=== PATIENT | male | born 1960 | race Caucasian/White ===

== ENCOUNTER 2019-05-28 08:51 | Day surgery (SDC) | payer MEDICAID ==
[~2019-05-28] VITALS: Ht 182.9 cm; Wt 127.0 kg
[~2019-05-28 08:51] MED LIST: ATEN100T2 PO; CARI350T PO; DILT120C67 PO; HYDR-5122 PO; HYDR25TA32 PO
[2019-05-28] MEDS ORDERED: fentaNYL 0.05 MG/ML VIAL ONE (10:59)
[2019-05-28] MEDS ORDERED: LIDOCAINE 2% 100 MG/5 ML UJET TP ONE (10:59)
[2019-05-28] MEDS ORDERED: fentaNYL 0.05 MG/ML VIAL IVP ONE (11:55)
== END 2019-05-28 11:58 | disposition home or self-care (01) ==
LOC: MOR 08:51 → MMU 09:03 → MOR 11:58
PROVIDERS: ATTEND Internal Medicine Gastroenterology
DX: Z12.11 Encounter for screening for malignant neoplasm of colon (principal); K57.30 Diverticulosis of large intestine without perforation or abscess without bleeding; I10 Essential (primary) hypertension; E66.9 Obesity, unspecified; Z86.19 Personal history of other infectious and parasitic diseases; Z68.34 Body mass index [BMI] 34.0-34.9, adult
CPT/HCPCS: 45378; J3010

== ENCOUNTER 2021-01-25 13:48 | Inpatient (IN) | payer MEDICAID, SELFPAY ==
[~2021-01-25] VITALS: Ht 182.9 cm; Wt 138.3 kg
[2021-01-25 13:53] VITALS: BP 134/74
--- NOTE | 2021-01-25 14:21 | NUR ---
61/M C/O CHEST PAIN, HEADACHES AND BILATERAL LEG SWELLING X5 DAYS. PATIENT STATES BEGAN FEELING SOB TODAY. STATES CURRENTLY SEEING MAMMAL CONTROL AGENT FOR UNCONTROLLED HTN. PT STATED HE FELL AND HIT HIS HEAD ON FRIDAY, BUT DENIES LOC. PT STATED AFTER HITTING HIS HEAD HE HAS STARTED TO EXPERIENCE DIZZINESS, LIGHTHEADNESS, PHOTOPHOBIA, AND DOUBLE VISION. UPON ASSESSMENT S1/S2 HEARD. DIMINISHED BREATH SOUNDS HEARD IN BILATERAL LOWER LOBES. MEDHX: HTN, HEP C ALLERGIES: DENIES Addendum: 01/25/21 at 1909 by [email or web address] SEE LIST FOR ALLERGIES
[2021-01-25] MEDS ORDERED: ASPIRIN 325 MG TAB PO ONE (14:55)
--- NOTE | 2021-01-25 14:56 | NUR ---
DR. ROY BEDSIDE EVALUATING PT
[2021-01-25] MEDS ORDERED: MORPHINE SULFATE 4 MG/ML SYR IVP ONE (15:00)
[2021-01-25 15:56] LABS: BASOPHILS # (AUTO) 0.1 K/uL (0.00-0.22); BASOPHILS % (AUTO) 0.9 % (0.0-2.0); EOSINOPHILS # (AUTO) 0.2 K/uL (0-0.4); EOSINOPHILS % (AUTO) 2.7 % (0.0-4.0); HEMATOCRIT 42.9 % (36-52); HEMOGLOBIN 14.7 g/dL (12.0-18.0); LYMPHOCYTES # (AUTO) 2.3 K/uL (2.0-11.5); LYMPHOCYTES % (AUTO) 31.3 % (20.5-51.1); MEAN CORPUSCULAR HEMOGLOBIN 33 pg (27-31); MEAN CORPUSCULAR HGB CONC 34 g/dL (33-37); MEAN CORPUSCULAR VOLUME 95.3 fL (80-94); MONOCYTES # (AUTO) 0.8 K/uL (0.8-1.0); MONOCYTES % (AUTO) 10.5 % (1.7-9.3); NEUTROPHILS % (AUTO) 54.6 % (42.2-75.2); PLATELET COUNT (AUTO) 160 K/uL (140-450); RED BLOOD CELL COUNT(AUTO) 4.51 MIL/uL (4.20-6.10); RED CELL DISTRIBUTION WIDTH 13.8 % (11.6-13.7); WHITE BLOOD COUNT (AUTO) 7.4 K/uL (4.8-10.8)
[2021-01-25 16:15] LABS: ANION GAP 12.5 (8-16); CARBON DIOXIDE 29.3 mmol/L (21-32); CREATININE 1.1 mg/dL (0.6-1.3); POTASSIUM 4.8 mmol/L (3.5-5.1); TOTAL BILIRUBIN 0.5 mg/dL (0.0-1.0)
--- NOTE | 2021-01-25 16:16 | NUR ---
PT CURRENTLY RESTING BEDSIDE WITH EYES OPEN. PT ON AIX ARCHITECT AND VITAL SIGNS STABLE. BED IN LOWEST POSITION WITH SIDERAIL X1 UP. WILL CONTINUE TO MONITOR
--- NOTE | 2021-01-25 16:16 | NUR ---
CONSENT FOR CT HAS BEEN SIGNED AND OBTAINED BEDSIDE
--- NOTE | 2021-01-25 16:37 | NUR ---
pt taken to ct via nettie
--- NOTE | 2021-01-25 18:28 | NUR ---
SRINI ROBERTS SWAB COLLECTED AND HANDED TO OCCUPATIONAL HEALTH AND SAFETY ADVISER
[2021-01-25] MEDS ORDERED: METO50TE2 PO (18:39)
[2021-01-25] MEDS ORDERED: ROSU20TA1 PO (18:39)
[2021-01-25] MEDS ORDERED: BENA20TA PO (18:39)
[2021-01-25] MEDS ORDERED: SPIR50TA PO (18:39)
[2021-01-25] MEDS ORDERED: NAPR-1719 PO (18:39)
[2021-01-25] MEDS ORDERED: AMLO10TA89 PO (18:39)
--- NOTE | 2021-01-25 19:20 | NUR ---
PT IS AWAKE AND ALERT. PT DENIES TROUBLE BREATHING AND CHEST PAIN. ALL NEEDS MET AT THIS TIME.
[2021-01-25] MEDS ORDERED: DOCUSATE SODIUM 100 MG GELCAP PO PRN (20:20)
[2021-01-25] MEDS ORDERED: ZOLPIDEM 5 MG TAB PO PRN (20:20)
[2021-01-25] MEDS: NACL 0.9% 1,000 ML IV SCH (20:20)
[2021-01-25] MEDS ORDERED: guaiFENesin DM 200/20 MG-10 ML 10 ML UDC PO PRN (20:20)
[2021-01-25] MEDS ORDERED: ONDANSETRON 4 MG/2 ML VIAL IM/IVP PRN (20:20)
[2021-01-25] MEDS ORDERED: POTASSIUM CHLORIDE 10 MEQ TABER PO PRN (20:20)
[2021-01-25] MEDS ORDERED: HYDROcodone/APAP 5/325 MG 1 TAB TAB PO SCH (20:25)
[2021-01-25] MEDS ORDERED: NITROGLYCERIN 0.4 MG TAB SL PRN (20:30)
--- NOTE | 2021-01-25 20:43 | NUR ---
X-Ray at bedside.
[2021-01-25 20:58] LABS: PROTHROMBIN TIME 9.6 secs (10.8-13.4)
[2021-01-25] MEDS ORDERED: NON-FORMULARY ITEM (Rosuvastatin Calcium* (Crestor*) 20 MG) PO SCH (21:00)
[2021-01-25 21:09] LABS: CHOL/HDL RATIO 4.4 (1-4.5); MAGNESIUM 2.2 mg/dL (1.8-2.4); PHOSPHORUS 3.7 mg/dL (2.5-4.9); THYROID STIMULATING HORMONE 1.62 uIU/mL (0.34-3.74)
[2021-01-25 21:30] LABS: FREE T4 (FREE THYROXINE) 0.79 ng/dL (0.76-1.46)
[2021-01-25] MEDS: METOPROLOL 50 MG TAB PO SCH (21:39)
[2021-01-25] MEDS: carisoprodoL 350 MG TAB PO SCH (21:39)
--- NOTE | 2021-01-25 23:28 | NUR ---
Alyssa randle in [facility] - 01/25/21 at 2329 by [facility] REPORTED BLOOD GLUCOSE [phone], DR ORTIZ MADE AWARE.
--- NOTE | 2021-01-26 06:27 | NUR ---
PT SLEPT FROM 11:30 PM AND IS STILL ASLEEP. PT STILL IN STABLE CONDITION. EQUAL RISE AND FALL OF CHEST WALL. ALL NEEDS MET. SIDE RAILS X1, BED LOCKED IN LOWEST POSITION.
[2021-01-26 06:47] LABS: BASOPHILS # (AUTO) 0.1 K/uL (0.00-0.22); BASOPHILS % (AUTO) 0.8 % (0.0-2.0); EOSINOPHILS # (AUTO) 0.3 K/uL (0-0.4); EOSINOPHILS % (AUTO) 3.3 % (0.0-4.0); HEMATOCRIT 44.2 % (36-52); HEMOGLOBIN 14.6 g/dL (12.0-18.0); LYMPHOCYTES # (AUTO) 2.2 K/uL (2.0-11.5); LYMPHOCYTES % (AUTO) 25.8 % (20.5-51.1); MEAN CORPUSCULAR HEMOGLOBIN 32 pg (27-31); MEAN CORPUSCULAR HGB CONC 33 g/dL (33-37); MEAN CORPUSCULAR VOLUME 97.3 fL (80-94); MONOCYTES # (AUTO) 0.9 K/uL (0.8-1.0); MONOCYTES % (AUTO) 10.5 % (1.7-9.3); NEUTROPHILS # (AUTO) 5.1 K/uL (1.8-7.7); NEUTROPHILS % (AUTO) 59.6 % (42.2-75.2); PLATELET COUNT (AUTO) 158 K/uL (140-450); RED BLOOD CELL COUNT(AUTO) 4.55 MIL/uL (4.20-6.10); RED CELL DISTRIBUTION WIDTH 13.9 % (11.6-13.7); WHITE BLOOD COUNT (AUTO) 8.6 K/uL (4.8-10.8)
--- NOTE | 2021-01-26 07:28 | NUR ---
URINE COLLECTION CUP GIVEN TO PT, STATED HE WILL GIVE URINE WHEN HE GETS UP.
--- NOTE | 2021-01-26 07:30 | NUR ---
REPORT GIVEN TO AVILA PERALTA. TRANSFER OF CARE AT THIS TIME.
--- NOTE | 2021-01-26 08:08 | NUR ---
REPORT RECEIVED FROM ED NURSE.
--- NOTE | 2021-01-26 08:36 | NUR ---
Patient will be admitted to care of DR. CHRISTIANSON. Admited to TELE. Will go to room 122A. Belongings list completed. Report to AVILA DAVIS.
[2021-01-26] MEDS: ECOTRIN 81 MG TABEC PO SCH (09:25)
[2021-01-26] MEDS: hydroCHLOROthiazide 25 MG TAB PO SCH (09:27)
[2021-01-26] MEDS: carisoprodoL 350 MG TAB PO SCH ×2 (09:28→21:22)
[2021-01-26] MEDS: ATORVASTATIN 80 MG TAB PO SCH (09:28)
[2021-01-26] MEDS: METOPROLOL 50 MG TAB PO SCH ×2 (09:29→21:21)
[2021-01-26] MEDS: SPIRONOLACTONE 50 MG TAB PO SCH (09:30)
[2021-01-26] MEDS: PANTOPRAZOLE 40 MG TABEC PO SCH (09:31)
[2021-01-26] MEDS: BENAZEPRIL 20 MG TAB PO SCH (09:32)
--- NOTE | 2021-01-26 09:38 | NUR ---
MEDICATIONS GIVEN PER MD ORDER. PT EDUCATED . PT VERBALIZED UNDERSTANDING. NO S/SX OF DISTRESS AT THIS TIME. PT REORIENTED TO ROOM ALL SAFETY MEASURES ARE IN PLACE. CALL LIGHT WITHIN REACH
--- NOTE | 2021-01-26 11:20 | NUR ---
PT AMBULATED TO RESTROOM. PT HAS LABORED BREATHING PT PUT BACK O2/ 02% 96%. PT EDUCATED TO USE URINAL/ PT VERBALIZED UNDERSTANDING. NO S/SX OF DISTRESS AT THIS TIME. CALL LIGHT WITHIN REACH
[2021-01-26 11:52] LABS: ANION GAP 15.8 (8-16); CARBON DIOXIDE 26.6 mmol/L (21-32); POTASSIUM 4.4 mmol/L (3.5-5.1)
[2021-01-26 12:00] VITALS: BP 135/62
--- NOTE | 2021-01-26 12:53 | NUR ---
IV FLUIDS GIVEN PER MD ORDER. PT EDUCATED, PT VERBALIZED UNDERSTANDING. PT DENIES PAIN AT THIS TIME. NO S/S OF DISTRESS. ALL SAFETY MEASURES IN PLACE.
[2021-01-26] MEDS: NACL 0.9% 1,000 ML IV SCH ×2 (13:57→21:34)
--- NOTE | 2021-01-26 14:00 | NUR ---
PATIENT ROUNDED ON PT RESTING IN BED, NO S/SX OF DISTRESS AT THIS TIME. ALL SAFETY MEASURES ARE IN PLACE.
[2021-01-26 16:00] VITALS: BP 135/67
--- NOTE | 2021-01-26 16:23 | NUR ---
PT ROUNDED ON PT RESTING IN BED, NO S/SX OF DISTRESS AT THIS TIME. ALL SAFETY MEASURES ARE IN PLACE. CALL LIGHT WITHIN REACH
--- NOTE | 2021-01-26 16:51 | NUR ---
PATIENT HAS BEEN SCREENED AND CATEGORIZED LOW NUTRITION RISK. PATIENT WILL BE SEEN WITHIN 7 DAYS OF ADMISSION. 02/01/21 FNS REFERRAL NOT APPROPRIATE FOR [facility] [address]
[2021-01-26] MEDS: KETOROLAC 30 MG/ML VIAL IVP PRN (18:33)
--- NOTE | 2021-01-26 18:40 | NUR ---
MEDICATED PT FOR PAIN PER MD ORDER. EDUCATED PT ON MEDICATION. PT VERBALIZED UNDERSTANDING. ALL SAFETY MEASURES IN PLACE, CALL LIGHT WITHIN REACH.
--- NOTE | 2021-01-26 19:29 | NUR ---
PT ENDORSED TO NIGHT NURSE. PT IN STABLE CONDITION
--- NOTE | 2021-01-26 19:35 | NUR ---
RECEIVED REPORT FROM DAYSNEFT NURSE FOR CONTINUITY OF CARE.
[2021-01-26 20:00] VITALS: BP 156/77
--- NOTE | 2021-01-26 21:37 | NUR ---
ALL SCHEDULED MEDS GIVEN. PT TOLERATED WELL.
[2021-01-27] VITALS: BP 109/50
--- NOTE | 2021-01-27 01:21 | NUR ---
PATIENT ASLEEP, 4L NC, NO SIGNS OF DISTRESS. SAFETY MEASURES IMPLEMENTED. CALL LIGHT WITHIN REACH.
[2021-01-27 04:00] VITALS: BP 126/59
[2021-01-27] MEDS: KETOROLAC 30 MG/ML VIAL IVP PRN ×2 (05:47→12:28)
--- NOTE | 2021-01-27 05:47 | NUR ---
GAVE PRN KETOROLAC FOR 7/10 HEADACHE. PRN TOLERATED WELL.
[2021-01-27 07:07] LABS: BASOPHILS # (AUTO) 0.1 K/uL (0.00-0.22); BASOPHILS % (AUTO) 0.7 % (0.0-2.0); EOSINOPHILS # (AUTO) 0.2 K/uL (0-0.4); HEMATOCRIT 40.6 % (36-52); LYMPHOCYTES % (AUTO) 25.7 % (20.5-51.1); MEAN CORPUSCULAR HEMOGLOBIN 33 pg (27-31); MEAN CORPUSCULAR HGB CONC 34 g/dL (33-37); MEAN CORPUSCULAR VOLUME 95.3 fL (80-94); MONOCYTES # (AUTO) 0.7 K/uL (0.8-1.0); MONOCYTES % (AUTO) 9.3 % (1.7-9.3); NEUTROPHILS # (AUTO) 4.9 K/uL (1.8-7.7); NEUTROPHILS % (AUTO) 62.3 % (42.2-75.2); PLATELET COUNT (AUTO) 137 K/uL (140-450); RED BLOOD CELL COUNT(AUTO) 4.26 MIL/uL (4.20-6.10); RED CELL DISTRIBUTION WIDTH 13.3 % (11.6-13.7); WHITE BLOOD COUNT (AUTO) 7.8 K/uL (4.8-10.8)
--- NOTE | 2021-01-27 07:23 | NUR ---
ENDORSE PT TO DAYSHIFT NURSE FOR CONTINUITY OF CARE.
--- NOTE | 2021-01-27 07:26 | NUR ---
RECEIVED REPORT FROM NIGHT NURSE PATIENT IS AAOX4, ON 4 LPM OXYGEN VIA NC SATURATING AT 96%, LAST BOWEL MOVEMENT 01/25/21, IV INTACT ON LEFT AC RUNNING NS AT 60 OUTPUT 700 ML. AMBULATORY, COMPLAINED OF HEADACHE AND PAIN MEDS GIVEN AT 0547. SKIN INTACT, WITH DVT PROPHYLAXIS. SAFETY MEASURES IN PLACE AND CALL LIGHT WITHIN REACH. WILL CONTINUE TO MONITOR.
[2021-01-27 07:30] LABS: ANION GAP 11.9 (8-16); CARBON DIOXIDE 29.6 mmol/L (21-32); POTASSIUM 4.5 mmol/L (3.5-5.1)
[2021-01-27 08:00] VITALS: BP 142/77
[2021-01-27] MEDS: ATORVASTATIN 80 MG TAB PO SCH (08:29)
[2021-01-27] MEDS: PANTOPRAZOLE 40 MG TABEC PO SCH (08:30)
[2021-01-27] MEDS: carisoprodoL 350 MG TAB PO SCH ×2 (08:30→20:42)
[2021-01-27] MEDS: ECOTRIN 81 MG TABEC PO SCH (08:30)
[2021-01-27] MEDS: BENAZEPRIL 20 MG TAB PO SCH (08:31)
[2021-01-27] MEDS: hydroCHLOROthiazide 25 MG TAB PO SCH (08:31)
[2021-01-27] MEDS: SPIRONOLACTONE 50 MG TAB PO SCH (08:31)
[2021-01-27] MEDS: METOPROLOL 50 MG TAB PO SCH ×2 (08:32→20:42)
--- NOTE | 2021-01-27 08:39 | NUR ---
ADMINISTERED SCHEDULED MEDICATION. VITAL SIGNS CHECK PRIOR TO MEDICATION BP 142/77 ND 63 PATIENT TOLERATED WELL AND NO DISTRESS NOTED. WILL CONTINUE TO MONITOR.
--- NOTE | 2021-01-27 10:00 | NUR ---
PATIENT SEEN BY DR BLEDSOE AND RECOMMENDED OP TIN ASSORTER FOR STRESS TEST.
[2021-01-27 10:06] LABS: T4 (THYROXINE) 6.5 ug/dL (4.5-12.0)
--- NOTE | 2021-01-27 10:58 | NUR ---
MADE ROUNDS PT IS SLEEPING STILL WITH 4 LPM OXYGEN VIA NASAL CANULA. WILL CONTINUE TO MONITOR.
[2021-01-27 12:00] VITALS: BP 141/84
--- NOTE | 2021-01-27 12:28 | NUR ---
PATIENT COMPLAINS OF HEADACHE AND BACK PAIN 01/26 CHECK VITAL SIGNS PRIOR TO MEDICATION BP 141/84 MD 71 PT IS SITTING. WILL CONTINUE TO MONITOR.
--- NOTE | 2021-01-27 13:11 | NUR ---
ECHO CARDIO ONGOING AT THIS TIME.
[2021-01-27] MEDS: ACETAMINOPHEN 325 MG TAB PO PRN ×2 (15:50→23:18)
--- NOTE | 2021-01-27 15:52 | NUR ---
PATIENT COMPLAINS OF HEADACHE 8/10 TYLENOL 650 MG GIVEN AND WILL RECHECK AFTER AN HOUR AND MONITOR FOR ANY ADVERSE EFFECT.
[2021-01-27 16:00] VITALS: BP 124/67
--- NOTE | 2021-01-27 16:50 | NUR ---
PATIENT FEELS BETTER AND NO ALLERGIC REACTION ON TYLENOL. PT IS RESTING.
--- NOTE | 2021-01-27 19:10 | NUR ---
ENDORSED TO NIGHT NURSE FOR CONTINUITY OF CARE. PT IS STABLE.
--- NOTE | 2021-01-27 19:38 | NUR ---
RECEIVED REPORT FROM DAYSRIFT NURSE FOR CONTINUITY OF CARE.
[2021-01-27 20:00] VITALS: BP 151/68
[2021-01-27] MEDS: NACL 0.9% 1,000 ML IV SCH (20:49)
--- NOTE | 2021-01-27 20:49 | NUR ---
ALL SCHEDULED MEDS GIVEN. PT TOLERATED WELL.
[2021-01-28] VITALS: BP 140/48
--- NOTE | 2021-01-28 03:51 | NUR ---
PATIENT ASLEEP. NO SIGNS OF DISTRESS, SAFETY MEASURES IMPLEMENTED.
[2021-01-28 04:00] VITALS: BP 140/48
[2021-01-28] MEDS: KETOROLAC 30 MG/ML VIAL IVP PRN (05:10)
[2021-01-28 06:37] LABS: BASOPHILS % (AUTO) 0.4 % (0.0-2.0); EOSINOPHILS # (AUTO) 0.2 K/uL (0-0.4); HEMOGLOBIN 14.3 g/dL (12.0-18.0); LYMPHOCYTES % (AUTO) 25.2 % (20.5-51.1); MEAN CORPUSCULAR HEMOGLOBIN 33 pg (27-31); MEAN CORPUSCULAR HGB CONC 34 g/dL (33-37); MEAN CORPUSCULAR VOLUME 95.5 fL (80-94); MONOCYTES # (AUTO) 0.8 K/uL (0.8-1.0); MONOCYTES % (AUTO) 10.2 % (1.7-9.3); NEUTROPHILS # (AUTO) 5.1 K/uL (1.8-7.7); NEUTROPHILS % (AUTO) 62.2 % (42.2-75.2); PLATELET COUNT (AUTO) 136 K/uL (140-450); RED BLOOD CELL COUNT(AUTO) 4.39 MIL/uL (4.20-6.10); RED CELL DISTRIBUTION WIDTH 13.5 % (11.6-13.7); WHITE BLOOD COUNT (AUTO) 8.1 K/uL (4.8-10.8)
[2021-01-28 07:10] LABS: ANION GAP 10.8 (8-16); CARBON DIOXIDE 29.4 mmol/L (21-32); POTASSIUM 4.2 mmol/L (3.5-5.1)
--- NOTE | 2021-01-28 07:14 | NUR ---
ENDORSE PATIENT TO DAYSHIFT NURSE FOR CONTINUITY OF CARE.
--- NOTE | 2021-01-28 07:18 | NUR ---
RECEIVED REPORT FROM NIGHT NURSE PATIENT IS AAOX4 PT IS RESTING ON SINUS RHYTHM, AMBULATORY, SKIN INTACT, IV INTACT ON LEFT AC RUNNING NS AT 60 MLS/HR. ON 4 LPM NC. SAFETY MEASURES IN PLACE AND CALL LIGHT WITHIN REACH. WILL CONTINUE TO MONITOR.
[2021-01-28 08:00] VITALS: BP 143/80
[2021-01-28] MEDS: ECOTRIN 81 MG TABEC PO SCH (09:06)
[2021-01-28] MEDS: PANTOPRAZOLE 40 MG TABEC PO SCH (09:07)
[2021-01-28] MEDS: METOPROLOL 50 MG TAB PO SCH (09:08)
[2021-01-28] MEDS: hydroCHLOROthiazide 25 MG TAB PO SCH (09:09)
[2021-01-28] MEDS: SPIRONOLACTONE 50 MG TAB PO SCH (09:10)
[2021-01-28] MEDS: ATORVASTATIN 80 MG TAB PO SCH (09:10)
[2021-01-28] MEDS: BENAZEPRIL 20 MG TAB PO SCH (09:11)
[2021-01-28] MEDS: carisoprodoL 350 MG TAB PO SCH (09:11)
[2021-01-28] MEDS: ACETAMINOPHEN 325 MG TAB PO PRN (09:12)
--- NOTE | 2021-01-28 09:19 | NUR ---
ADMINISTERED SCHEDULED MEDICATION CHECK VITAL SIGNS BP 143/80 MT 68 PATIENT COMPLAINS OF HEADACHE 7/10 PAIN MEDICATION GIVEN. WILL CONTINUE TO MONITOR.
--- NOTE | 2021-01-28 11:00 | NUR ---
PATIENT IS RESTING NO DISTRESS NOTED AND NO COMPLAINS OF CHEST PAIN.
[2021-01-28 12:00] VITALS: BP 137/85
--- NOTE | 2021-01-28 12:00 | NUR ---
PATIENT IS RESTING CHECK VITAL SIGNS NO PAIN NOTED AND PT STABLE.
[2021-01-28] MEDS ORDERED: ASPI-1856 PO (12:40)
[2021-01-28] MEDS ORDERED: METO50TA99 PO (12:40)
[2021-01-28] MEDS ORDERED: PANT40EC56 PO (12:40)
--- NOTE | 2021-01-28 15:35 | NUR ---
DISCHARGED INSTRUCTION GIVEN TO PATIENT AT THE BEDSIDE ENCOURAGED TO CONTINUE MEDICATION AND INSTRUCTED TO FOLLOW UP WITH MENTAL HEALTH CONSULTANT FOR OUTPATIENT STRESS TEST AND FOLLOW UP WITH PCP AFTER DISCHARGE. INSTRUCTED TO SEEK MEDICAL HELP IN CASE OF EMERGENCIES. REMOVED ID BANDS AND IV INTACT AND COMPLETE NO BLEEDING.REMOVED TELEMONITOR RETURNED TO LEGISLATIVE ANALYST. HELP PATIENT CHANGE CLOTHES AND ESCORTED TO FRONT LOBBY VIA WHEELCHAIR. PT IS GOING HOME ACCOMPANIED BY . PT IS STABLE.
== END 2021-01-28 13:35 | disposition home or self-care (01) | DRG 203 ==
LOC: MED 13:49 → MTU 18:29
PROVIDERS: ADMIT Family Medicine; ATTEND Family Medicine
DX: M94.0 Chondrocostal junction syndrome [Tietze] (principal); B19.20 Unspecified viral hepatitis C without hepatic coma; R07.89 Other chest pain; I25.10 Atherosclerotic heart disease of native coronary artery without angina pectoris; E66.01 Morbid (severe) obesity due to excess calories; E78.5 Hyperlipidemia, unspecified; R74.01 Elevation of levels of liver transaminase levels; G89.29 Other chronic pain; Z20.822 Contact with and (suspected) exposure to COVID-19; I10 Essential (primary) hypertension; Z96.651 Presence of right artificial knee joint; J43.9 Emphysema, unspecified; M19.90 Unspecified osteoarthritis, unspecified site; Z87.891 Personal history of nicotine dependence; Z86.718 Personal history of other venous thrombosis and embolism; Z68.41 Body mass index [BMI] 40.0-44.9, adult; Z88.6 Allergy status to analgesic agent; Z88.8 Allergy status to other drugs, medicaments and biological substances; Z79.899 Other long term (current) drug therapy
CPT/HCPCS: 36415; 71045; 71275; 80048; 80053; 82150; 83036; 83690; 83735; 83880; 84100; 84436; 84439; 84443; 84479; 84484; 85025; 85610; 85730; 87081; 93005; 93925; 93970; 96374; 99285; J1644; J1885; J2270; Q0092; Q9967

== ENCOUNTER 2022-06-09 09:36 | Inpatient (IN) | payer MEDICAID ==
[~2022-06-09] VITALS: Ht 182.9 cm; Wt 127.1 kg
[~2022-06-09 09:36] MED LIST changes: +ASPI-1856 PO; -ATEN100T2 PO; +BENA20TA PO; -DILT120C67 PO; -HYDR-5122 PO; +METO50TA99 PO; +PANT40EC56 PO; +ROSU20TA1 PO; +SPIR50TA PO
[2022-06-09 09:39] VITALS: BP 140/87
[2022-06-09] MEDS ORDERED: ASPIRIN 325 MG TAB PO ONE (10:10)
--- NOTE | 2022-06-09 10:20 | NUR ---
Covid and Flu swabs labeled and walked to lab.
--- NOTE | 2022-06-09 10:35 | NUR ---
Pt bibs for chest pain that worsened today. Pain is pressure, 6/10, non radiating, constant, worse with activity. Pt placed on monitor, iv started, labs labeled and sent to lab, speech clear, vss, no ss of acute distress, breathing equal and unlabored, rails up x 2.
[2022-06-09 11:04] LABS: BASOPHILS % (AUTO) 0.4 % (0.0-2.0); EOSINOPHILS # (AUTO) 0.1 K/uL (0-0.4); EOSINOPHILS % (AUTO) 0.7 % (0.0-4.0); HEMOGLOBIN 14.6 g/dL (12.0-18.0); LYMPHOCYTES # (AUTO) 1.6 K/uL (2.0-11.5); LYMPHOCYTES % (AUTO) 14.6 % (20.5-51.1); MEAN CORPUSCULAR HEMOGLOBIN 31 pg (27-31); MEAN CORPUSCULAR HGB CONC 34 g/dL (33-37); MONOCYTES # (AUTO) 1.3 K/uL (0.8-1.0); MONOCYTES % (AUTO) 11.7 % (1.7-9.3); NEUTROPHILS # (AUTO) 7.9 K/uL (1.8-7.7); NEUTROPHILS % (AUTO) 72.6 % (42.2-75.2); PLATELET COUNT (AUTO) 192 K/uL (140-450); RED BLOOD CELL COUNT(AUTO) 4.67 MIL/uL (4.20-6.10); RED CELL DISTRIBUTION WIDTH 14.1 % (11.6-13.7); WHITE BLOOD COUNT (AUTO) 10.9 K/uL (4.8-10.8)
[2022-06-09 11:22] LABS: ALBUMIN 3.6 g/dL (3.4-5.0); ANION GAP 10.1 (8-16); CARBON DIOXIDE 30.6 mmol/L (21-32); CREATININE 1.2 mg/dL (0.6-1.3); POTASSIUM 3.7 mmol/L (3.5-5.1)
--- NOTE | 2022-06-09 14:05 | NUR ---
OKAY TO EAT PER ERMD GIVEN APPLE SAUCE, JUICE, CRACKERS
[2022-06-09] MEDS ORDERED: NACL 0.9% 1,000 ML IV SCH ×2 (18:00→18:05)
[2022-06-09] MEDS ORDERED: ONDANSETRON 4 MG/2 ML VIAL IVP PRN (18:00)
[2022-06-09] MEDS ORDERED: LORazepam 2 MG/ML VIAL IVP PRN (18:00)
[2022-06-09] MEDS ORDERED: ZOLPIDEM 5 MG TAB PO PRN (18:05)
[2022-06-09] MEDS ORDERED: NITROGLYCERIN 0.4 MG TAB SL PRN (18:05)
[2022-06-09] MEDS: LORazepam 2 MG/ML VIAL IVP PRN (18:53)
--- NOTE | 2022-06-09 19:00 | NUR ---
Note razia in EDM - 06/09/22 at 1929 by [facility] Multiple attempts at IV made by myself and STUDY COORDINATOR as requested by , for superior access compared with 22g in hand. None successful yet.
--- NOTE | 2022-06-09 19:59 | NUR ---
MRSA swab collected and sent to lab
--- NOTE | 2022-06-09 20:40 | NUR ---
Report given to Kb GRAMAJO for transfer of care
[2022-06-09 21:00] VITALS: BP 164/77
[2022-06-09] MEDS ORDERED: METOPROLOL 25 MG TAB PO SCH (21:00)
--- NOTE | 2022-06-09 21:00 | NUR ---
PT IS WAS [id number] FROM ER A NEWLY ADMISSION. PT IS AWAKE AND ALERT ORIENTED X 4. HE IS ON NASAL CANULA 2 L. NO RESPIRATORY DISTRESS NOTED.
[2022-06-09] MEDS: METOPROLOL 50 MG TAB PO SCH (21:41)
--- NOTE | 2022-06-09 22:00 | NUR ---
PT IS HUNGRY ASKING FOR A SANDWICH. FOOD WAS PROVIDED. HE ALSO MENTIONED THAT HE NEEDS HE CPAP TO SLEEP WITH
--- NOTE | 2022-06-09 22:30 | NUR ---
PLACED PT ON CPAP AT THIS TIME. PT USES CPAP AT HOME. 7/32%
--- NOTE | 2022-06-09 23:00 | NUR ---
RT AT THE BEDSIDE PREPARING FOR CPAP
--- NOTE | 2022-06-10 00:30 | NUR ---
PT NO LONGER WANTS TO USE CPAP. PLACED BACK ON 3L.
--- NOTE | 2022-06-10 01:17 | NUR ---
PT COMPLAINING ABOUT CHEST PAIN. NITRO WAS GIVEN
[2022-06-10] MEDS: LORazepam 2 MG/ML VIAL IVP PRN (02:15)
[2022-06-10] MEDS ORDERED: MORPHINE SULFATE 2 MG/ML SYR IVP PRN (02:35)
[2022-06-10 05:54] VITALS: BP 128/62
[2022-06-10 05:56] LABS: BASOPHILS # (AUTO) 0.1 K/uL (0.00-0.22); BASOPHILS % (AUTO) 0.7 % (0.0-2.0); EOSINOPHILS # (AUTO) 0.1 K/uL (0-0.4); EOSINOPHILS % (AUTO) 0.6 % (0.0-4.0); HEMATOCRIT 42.2 % (36-52); HEMOGLOBIN 14.1 g/dL (12.0-18.0); LYMPHOCYTES # (AUTO) 1.4 K/uL (2.0-11.5); LYMPHOCYTES % (AUTO) 11.8 % (20.5-51.1); MEAN CORPUSCULAR HEMOGLOBIN 31 pg (27-31); MEAN CORPUSCULAR HGB CONC 34 g/dL (33-37); MEAN CORPUSCULAR VOLUME 92.1 fL (80-94); MONOCYTES # (AUTO) 1.3 K/uL (0.8-1.0); MONOCYTES % (AUTO) 11.3 % (1.7-9.3); NEUTROPHILS # (AUTO) 8.9 K/uL (1.8-7.7); NEUTROPHILS % (AUTO) 75.6 % (42.2-75.2); PLATELET COUNT (AUTO) 192 K/uL (140-450); RED BLOOD CELL COUNT(AUTO) 4.58 MIL/uL (4.20-6.10); RED CELL DISTRIBUTION WIDTH 14.2 % (11.6-13.7); WHITE BLOOD COUNT (AUTO) 11.8 K/uL (4.8-10.8)
[2022-06-10 06:36] LABS: CARBON DIOXIDE 31.3 mmol/L (21-32); CREATININE 1.2 mg/dL (0.6-1.3); POTASSIUM 4.3 mmol/L (3.5-5.1)
[2022-06-10 06:45] LABS: CHOL/HDL RATIO 2.8 (1-4.5); MAGNESIUM 1.9 mg/dL (1.8-2.4)
[2022-06-10] MEDS ORDERED: POTASSIUM CHLORIDE 10 MEQ TABER PO PRN (07:55)
[2022-06-10] MEDS ORDERED: MAG SULF 2000 MG/WATER PREMIX 50 ML IV PRN (07:55)
[2022-06-10] MEDS ORDERED: ZOLPIDEM 10 MG TAB PO PRN (07:55)
[2022-06-10] MEDS ORDERED: LORazepam 2 MG/ML VIAL IVP PRN (07:55)
[2022-06-10] MEDS ORDERED: DOCUSATE SODIUM 100 MG GELCAP PO PRN (07:55)
[2022-06-10] MEDS ORDERED: ONDANSETRON 4 MG/2 ML VIAL IVP PRN (07:55)
[2022-06-10 08:00] VITALS: BP 138/80
--- NOTE | 2022-06-10 08:00 | NUR ---
RECEIVED PATIENT IN BED, COMPLAINS OF MILD SOB, LUNG SOUNDS SCATTERED RALES HEARD UPON AUSCULTATION,ON O2 @ 3LPM VIA NC, ASSESSMENT DONE AND DOCUMENTED,PLAN OF CARE DISCUSSED, WILL CALL RT FOR BREATHING TREATMENT.
--- NOTE | 2022-06-10 08:10 | NUR ---
AWAKE AND ALERT RESPONSIVE RECEIVED ON SUPPLEMENTAL OXYGEN AT 3 LPM VIA NC SATURATION 91% PATIENT PRESENTING WITH INCREASED WOB AT 28 BPM DEEP CHEST RISE BREATH SOUNDS RALES RIGHT SIDE DECREASED LEFT SIDE PATIENT GOOD CANDIDATE FOR HHN THERAPY PRN AND OR SCHEDULED ROCK DUSTER TO REVIEW WITH PCP
--- NOTE | 2022-06-10 08:23 | NUR ---
ON OR ABOUT THIS TIME REVIEWED WITH DR. JASS MOULTON PATIENTS PMHX: COPD CHF CAD HTN ALBUTEROL MDI USAGE 4 TIMES A DAY HOME O2 AT 2 LPM VORBO: HHN THERAPY ALBUTEROL Q6WA AND Q4 PRN SOB OXYGEN SATURATION GREATER THAN 90%
[2022-06-10] MEDS ORDERED: ATORVASTATIN 80 MG TAB PO SCH (09:00)
[2022-06-10] MEDS ORDERED: ATORVASTATIN 20 MG TAB PO SCH (09:00)
[2022-06-10] MEDS ORDERED: CLOPIDOGREL 75 MG TAB PO SCH (09:00)
--- NOTE | 2022-06-10 09:00 | NUR ---
BREATHING TREATMENT GIVEN BY RT WITH RELIEF, PATIENT STATES FEELING BETTER AT THIS TIME, WILL CONTINUE TO MONITOR.
[2022-06-10] MEDS ORDERED: ALBUTEROL 0.083% 2.5 MG/3 ML NEBU INH PRN (09:10)
--- NOTE | 2022-06-10 09:21 | NUR ---
PATIENT HAS BEEN SCREENED AND CATEGORIZED MODERATE NUTRITION RISK. PATIENT WILL BE SEEN WITHIN 3-5 DAYS OF ADMISSION. / REVIEWED BY KIET RECINOS RD
[2022-06-10] MEDS: METOPROLOL 50 MG TAB PO SCH ×2 (10:13→21:53)
[2022-06-10] MEDS: SPIRONOLACTONE 50 MG TAB PO SCH (10:13)
[2022-06-10] MEDS: BENAZEPRIL 20 MG TAB PO SCH (10:13)
[2022-06-10] MEDS: hydroCHLOROthiazide 25 MG TAB PO SCH (10:14)
[2022-06-10 12:00] VITALS: BP 130/78
[2022-06-10] MEDS ORDERED: methylPREDNISolone SS 125 MG/2 ML VIAL IVP SCH (13:00)
[2022-06-10] MEDS ORDERED: AZITHROMYCIN 500 MG in DEXTROSE 5% 250 ML IV SCH (13:00)
[2022-06-10] MEDS: ALBUTEROL 0.083% 2.5 MG/3 ML NEBU INH SCH ×2 (14:02→19:01)
[2022-06-10] MEDS: ISOSORBIDE MONONITRATE 30 MG TABER PO SCH (14:40)
[2022-06-10 16:00] VITALS: BP 156/60
--- NOTE | 2022-06-10 19:30 | NUR ---
RECEIVED REPORT FROM DAY SHIFT NURSE CONNOR FOR CONTINUITY OF CARE. PATIENT IS A&O X1. IV IS ASHLIE 22G, NO FLUIDS RUNNING (SALINE LOCKED). PATIENT IS SLEEPING, LYING SEMI-FOWLERS IN BED. BED IS IN LOWEST POSITION, WHEELS LOCKED CALL LIGHT IN PLACE. WILL CONTINUE TO OBSERVE PATIENT.
[2022-06-10 20:00] VITALS: BP 144/107
[2022-06-10] MEDS: methylPREDNISolone SS 125 MG/2 ML VIAL IVP SCH (21:51)
--- NOTE | 2022-06-11 04:30 | NUR ---
OBTAINED PATIENT'S 0400 VITALS. PATIENT WAS SLEEPING UPON ENTERING THE ROOM. PATIENT WAS EASILY WOKEN UP. PATIENT WAS COOPERATIVE FOR VITALS. PATIENT HAS BEEN SLEEPING THROUGHOUT THE NIGHT WITHOUT ANY DIFFICULTY STAYING ASLEEP. PATIENT IS STILL ON NC WITH BUBBLER. WILL CONTINUE TO OBSERVE PATIENT.
[2022-06-11 06:08] LABS: ANION GAP 11.8 (8-16); BASOPHILS % (AUTO) 0.1 % (0.0-2.0); CARBON DIOXIDE 28.9 mmol/L (21-32); CREATININE 1.4 mg/dL (0.6-1.3); HEMATOCRIT 39.3 % (36-52); HEMOGLOBIN 13.3 g/dL (12.0-18.0); LYMPHOCYTES # (AUTO) 0.7 K/uL (2.0-11.5); LYMPHOCYTES % (AUTO) 5.4 % (20.5-51.1); MEAN CORPUSCULAR HEMOGLOBIN 31 pg (27-31); MEAN CORPUSCULAR HGB CONC 34 g/dL (33-37); MEAN CORPUSCULAR VOLUME 91.3 fL (80-94); MONOCYTES # (AUTO) 0.3 K/uL (0.8-1.0); MONOCYTES % (AUTO) 2.5 % (1.7-9.3); PLATELET COUNT (AUTO) 224 K/uL (140-450); POTASSIUM 4.7 mmol/L (3.5-5.1); RED CELL DISTRIBUTION WIDTH 14.3 % (11.6-13.7)
[2022-06-11] MEDS: ALBUTEROL 0.083% 2.5 MG/3 ML NEBU INH SCH (07:20)
--- NOTE | 2022-06-11 08:00 | NUR ---
RECEIVED PATIENT IN BED, RESTING COMFORTABLY, NOT IN ANY FORM OF DISTRESS,ON O2 @3LPM VIA NC TOLERATING WELL, ASSESSMENT DONE AND DOCUMENTED, PLAN OF CARE DISCUSSED, NO OTHER COMPLAINS AT THIS TIME.
[2022-06-11] MEDS ORDERED: FUROSEMIDE 40 MG/4 ML VIAL IVP SCH (09:00)
[2022-06-11] MEDS ORDERED: ECOTRIN 81 MG TABEC PO SCH (09:00)
[2022-06-11] MEDS ORDERED: ATORVASTATIN 80 MG TAB PO SCH (09:00)
[2022-06-11] MEDS: hydroCHLOROthiazide 25 MG TAB PO SCH (09:18)
[2022-06-11] MEDS: BENAZEPRIL 20 MG TAB PO SCH (09:19)
[2022-06-11] MEDS: SPIRONOLACTONE 50 MG TAB PO SCH (09:19)
[2022-06-11] MEDS: METOPROLOL 50 MG TAB PO SCH (09:19)
[2022-06-11] MEDS: ISOSORBIDE MONONITRATE 30 MG TABER PO SCH (09:19)
[2022-06-11] MEDS ORDERED: ISOS30TE68 PO (09:24)
[2022-06-11] MEDS: methylPREDNISolone SS 125 MG/2 ML VIAL IVP SCH (09:24)
[2022-06-11] MEDS ORDERED: PRED10TA5 PO (09:24)
[2022-06-11] MEDS ORDERED: LIP80 PO (09:24)
[2022-06-11] MEDS ORDERED: LEVO-481 PO (09:25)
[2022-06-11 12:36] VITALS: BP 120/85
--- NOTE | 2022-06-11 13:30 | NUR ---
PATIENT DISCHARGED HOME. PERSONAL BELONGINGS SENT HOME WITH PATIENT. STABLE UPON DISCHARGE.
== END 2022-06-11 13:30 | disposition home or self-care (01) | DRG 140 ==
LOC: MED 09:36 → MTU 16:41
PROVIDERS: ADMIT Family Medicine; ATTEND Family Medicine
PROC: 05HY33Z Insertion of Infusion Device into Upper Vein, Percutaneous Approach (ICD-10-PCS; principal; 2022-06-09)
DX: J44.1 Chronic obstructive pulmonary disease with (acute) exacerbation (principal); J96.00 Acute respiratory failure, unspecified whether with hypoxia or hypercapnia; I25.110 Atherosclerotic heart disease of native coronary artery with unstable angina pectoris; I11.0 Hypertensive heart disease with heart failure; E87.1 Hypo-osmolality and hyponatremia; I50.9 Heart failure, unspecified; R07.89 Other chest pain; Z20.822 Contact with and (suspected) exposure to COVID-19; E66.9 Obesity, unspecified; Z68.38 Body mass index [BMI] 38.0-38.9, adult; E78.5 Hyperlipidemia, unspecified; B19.20 Unspecified viral hepatitis C without hepatic coma; K76.9 Liver disease, unspecified; Z87.891 Personal history of nicotine dependence; Z79.82 Long term (current) use of aspirin; Z88.1 Allergy status to other antibiotic agents; Z59.00 Homelessness unspecified
CPT/HCPCS: 36415; 71045; 71275; 80048; 80053; 83036; 83735; 83880; 84484; 85025; 85379; 85610; 85730; 87081; 93005; 94640; 94660; 96374; 99285; J0456; J0696; J2060; J2270; J2930; J7060; J7613; Q0092; Q9967

== ENCOUNTER 2022-08-25 16:51 | Emergency (ER) | payer MEDICAID ==
[~2022-08-25] VITALS: Ht 182.9 cm; Wt 123.4 kg
[~2022-08-25 16:51] MED LIST changes: -CARI350T PO; +ISOS30TE68 PO; +LEVO-481 PO; +LIP80 PO; -PANT40EC56 PO; +PRED10TA5 PO; -ROSU20TA1 PO
[2022-08-25 17:00] VITALS: BP 131/82
[2022-08-25 17:46] LABS: BILIRUBIN,URINE NEGATIVE (NEGATIVE); BLOOD, URINE 3+ (NEGATIVE); LEUKOCYTE ESTERASE ,URINE 3+ (NEGATIVE); NITRITE, URINE POSITIVE (NEGATIVE); UGLUCOSE NEGATIVE (NEGATIVE)
[2022-08-25 17:57] LABS: APPEARANCE,URINE CLOUDY (CLEAR)
[2022-08-25 17:58] LABS: COLOR,URINE STRAW (YELLOW)
--- NOTE | 2022-08-25 18:01 | NUR ---
DR CAO ATTEMPTED TO BRING PT BACK, NOT FOUND IN LOBBY/OUTSIDE
[2022-08-25 18:02] LABS: WBC,URINE 20-60 /HPF (0-5)
[2022-08-25 18:28] LABS: BASOPHILS # (AUTO) 0.1 K/uL (0.00-0.22); BASOPHILS % (AUTO) 1.1 % (0.0-2.0); EOSINOPHILS # (AUTO) 0.2 K/uL (0-0.4); EOSINOPHILS % (AUTO) 2.3 % (0.0-4.0); HEMATOCRIT 37.3 % (36-52); HEMOGLOBIN 12.8 g/dL (12.0-18.0); LYMPHOCYTES # (AUTO) 1.9 K/uL (2.0-11.5); LYMPHOCYTES % (AUTO) 19.7 % (20.5-51.1); MEAN CORPUSCULAR HEMOGLOBIN 31 pg (27-31); MEAN CORPUSCULAR HGB CONC 34 g/dL (33-37); MEAN CORPUSCULAR VOLUME 91.4 fL (80-94); MONOCYTES # (AUTO) 0.9 K/uL (0.8-1.0); MONOCYTES % (AUTO) 8.8 % (1.7-9.3); NEUTROPHILS # (AUTO) 6.7 K/uL (1.8-7.7); NEUTROPHILS % (AUTO) 68.1 % (42.2-75.2); PLATELET COUNT (AUTO) 304 K/uL (140-450); RED BLOOD CELL COUNT(AUTO) 4.08 MIL/uL (4.20-6.10); RED CELL DISTRIBUTION WIDTH 14.3 % (11.6-13.7); WHITE BLOOD COUNT (AUTO) 9.8 K/uL (4.8-10.8)
[2022-08-25 18:41] LABS: ALBUMIN 3.7 g/dL (3.4-5.0); ANION GAP 14.9 (8-16); CARBON DIOXIDE 28.2 mmol/L (21-32); CREATININE 2.3 mg/dL (0.6-1.3); POTASSIUM 4.1 mmol/L (3.5-5.1); TOTAL BILIRUBIN 0.3 mg/dL (0.0-1.0)
--- NOTE | 2022-08-25 20:15 | NUR ---
ATTEMPTED TO CALL PT IN LOBBY, NO ANSWER. CALLED PHONE PT PROVIDED FOR CONTACT AND NO ANSWER.
--- NOTE | 2022-08-25 20:18 | NUR ---
PT HAS ELOPED, NO CONTACT WITH PT. PT WAS SEEN BY PROVIDER.
--- NOTE | 2022-08-25 20:19 | NUR ---
PATIENT ELOPED FROM FACILITY. DISCHARGE INSTRUCTIONS NOT GIVEN TO PATIENT. DR. CAO NOTIFIED.
[2022-08-25] MEDS ORDERED: CEPH-588 PO (23:06)
== END 2022-08-25 20:19 | disposition left against medical advice (07) ==
LOC: MED 16:51
DX: N28.9 Disorder of kidney and ureter, unspecified (principal); T85.510A Breakdown (mechanical) of bile duct prosthesis, initial encounter; I25.10 Atherosclerotic heart disease of native coronary artery without angina pectoris; I10 Essential (primary) hypertension; Z88.5 Allergy status to narcotic agent; Z79.1 Long term (current) use of non-steroidal anti-inflammatories (NSAID); Z79.899 Other long term (current) drug therapy; X58.XXXA Exposure to other specified factors, initial encounter; Y93.89 Activity, other specified; Y92.89 Other specified places as the place of occurrence of the external cause; Y99.8 Other external cause status
CPT/HCPCS: 36415; 80053; 81001; 85025; 87086; 99283

== ENCOUNTER 2022-11-10 12:49 | Emergency (ER) | payer MEDICAID ==
[~2022-11-10] VITALS: Ht 182.9 cm; Wt 125.2 kg
[~2022-11-10 12:49] MED LIST changes: +CEPH-588 PO
[2022-11-10 12:53] VITALS: BP 148/92; PULSE 74; RESP 20; TEMP 97; O2SAT 99
--- NOTE | 2022-11-10 13:19 | NUR ---
PATIENT PRESENTS TO ED WITH SIGNS AND SYMPTOMS OF CHF, SOB, CHRONIC URINARY URGENCY SYMPTOMS OF UTI, FOR LAST THREE WEEKS FIRST VOIDING HAS BEEN DIFFICULT. PT STATES PAST HISTORY CIRRHOSIS OF LIVER, HEP C, SIX RIBS BROKERN , COLLASSPED RIGHT LUNG. HISTRY OF BLOOD CLOTS,HISTORY OF HTN. DENIES N/V/D; SKIN IS PINK/WARM/DRY; AAOX4 WITH EVEN AND STEADY GAIT; LUNGS CLEAR BL; HR EVEN AND REGULAR; PT DENIES ANY FEVER, SOB, OR COUGH AT THIS TIME; PATIENT STATES PAIN OF 6/10 AT THIS TIME; VSS; PATIENT POSITIONED FOR COMFORT; HOB ELEVATED; BEDRAILS UP X2; BED DOWN. ER MD MADE AWARE OF PT STATUS.
[2022-11-10 13:33] VITALS: BP 121/69; PULSE 64; RESP 18; TEMP 96.7
[2022-11-10 14:07] VITALS: O2SAT 95
[2022-11-10 14:07] LABS: BASOPHILS # (AUTO) 0.1 K/uL (0.00-0.22); BASOPHILS % (AUTO) 1.2 % (0.0-2.0); EOSINOPHILS # (AUTO) 0.2 K/uL (0-0.4); EOSINOPHILS % (AUTO) 2.1 % (0.0-4.0); HEMATOCRIT 41.1 % (36-52); HEMOGLOBIN 14.1 g/dL (12.0-18.0); LYMPHOCYTES # (AUTO) 1.6 K/uL (2.0-11.5); LYMPHOCYTES % (AUTO) 20.5 % (20.5-51.1); MEAN CORPUSCULAR HEMOGLOBIN 32 pg (27-31); MEAN CORPUSCULAR HGB CONC 34 g/dL (33-37); MEAN CORPUSCULAR VOLUME 92.1 fL (80-94); MONOCYTES # (AUTO) 0.7 K/uL (0.8-1.0); MONOCYTES % (AUTO) 9.1 % (1.7-9.3); NEUTROPHILS # (AUTO) 5.4 K/uL (1.8-7.7); NEUTROPHILS % (AUTO) 67.1 % (42.2-75.2); PLATELET COUNT (AUTO) 156 K/uL (140-450); RED BLOOD CELL COUNT(AUTO) 4.46 MIL/uL (4.20-6.10); RED CELL DISTRIBUTION WIDTH 13.9 % (11.6-13.7)
--- NOTE | 2022-11-10 14:09 | NUR ---
62 Y/O MALE BIB SELF FROM HOME, C/O URINARY HESITANCY FOR 2 WEEKS. PT STATES HE SAW UROLOGIST 1 MO AGO. DENIES FLANK PAIN, HEMATURIA, DYSURIA, ABDOMINAL PAIN. STATES HE HAD A BILIARY BAG PLACED 3 MONTHS AGO AT [facility] AND REPORTS LEAKAGE FROM BAG. PMH: CARDIAC, HTN, BILIARY DRAINAGE BAG, ANXIETY, CIRRHOSIS, HEP C, COLLAPOSED RIGHT LUNG ALLERGY: TYLENOL, NORCO, MOTRIN, PROPOXYPHENE
[2022-11-10 14:10] VITALS: O2SAT 93
--- NOTE | 2022-11-10 15:08 | NUR ---
PT HAS BEEN PLACED ON 5 LITERS OF O2. PTS DESATING TO 89. PT STATES HES ON 4 LITERS OF O2 AT HOME FOR CHRONIC SOB. PT MADE AWARE. XRAY AT BEDSIDE.
[2022-11-10 15:16] LABS: ALBUMIN 4.1 g/dL (3.4-5.0); ANION GAP 15.6 (8-16); CARBON DIOXIDE 25.4 mmol/L (21-32); CREATININE 1.3 mg/dL (0.6-1.3); TOTAL BILIRUBIN 0.8 mg/dL (0.0-1.0)
[2022-11-10 15:19] LABS: BILIRUBIN,URINE NEGATIVE (NEGATIVE); BLOOD, URINE 1+ (NEGATIVE); COLOR,URINE YELLOW (YELLOW); LEUKOCYTE ESTERASE ,URINE 2+ (NEGATIVE); NITRITE, URINE NEGATIVE (NEGATIVE); UGLUCOSE NEGATIVE (NEGATIVE)
[2022-11-10 15:21] LABS: APPEARANCE,URINE CLOUDY (CLEAR)
[2022-11-10] MEDS ORDERED: LEVO750T75 PO (15:32)
[2022-11-10] MEDS ORDERED: TAMS0.4C97 PO (15:32)
[2022-11-10 15:34] LABS: RBC,URINE 0-5 /HPF (0-5)
--- NOTE | 2022-11-10 15:41 | NUR ---
Patient discharged with v/s stable. Written and verbal after care instructions given and explained. Patient alert, oriented and verbalized understanding of instructions. Ambulatory with steady gait. All questions addressed prior to discharge. ID band removed. Patient advised to follow up with PMD. Rx of levofloxacin, flomax given. Patient educated on indication of medication including possible reaction and side effects. Opportunity to ask questions provided and answered.
== END 2022-11-10 15:41 | disposition home or self-care (01) ==
LOC: MED 12:49
DX: N39.0 Urinary tract infection, site not specified (principal); R39.11 Hesitancy of micturition; I10 Essential (primary) hypertension; F41.9 Anxiety disorder, unspecified; Z88.5 Allergy status to narcotic agent; Z88.6 Allergy status to analgesic agent; Z88.8 Allergy status to other drugs, medicaments and biological substances; Z98.890 Other specified postprocedural states; Z79.899 Other long term (current) drug therapy
CPT/HCPCS: 36415; 71045; 80053; 81001; 85025; 87086; 99284

== ENCOUNTER 2022-11-30 00:06 | Emergency (ER) | payer MEDICAID ==
[~2022-11-30] VITALS: Ht 182.9 cm; Wt 125.2 kg
[~2022-11-30 00:06] MED LIST changes: +LEVO750T75 PO; +TAMS0.4C97 PO
[2022-11-30 00:08] VITALS: BP 161/93; PULSE 65; RESP 16; TEMP 98.6; O2SAT 94
--- NOTE | 2022-11-30 00:12 | NUR ---
TO BED 4 FROM TRIAGE
--- NOTE | 2022-11-30 00:27 | NUR ---
XR AT BEDSIDE
[2022-11-30] MEDS ORDERED: MORPHINE SULFATE 4 MG/ML SYR IM ONE (01:05)
[2022-11-30] MEDS ORDERED: ALBUTEROL SULFATE/IPRATROPIU 3 ML SOL IH ONE (01:55)
[2022-11-30 01:57] VITALS: PULSE 57; RESP 20; O2SAT 97
--- NOTE | 2022-11-30 01:57 | NUR ---
RT at bedside for breathing tx
[2022-11-30 02:00] LABS: BASOPHILS # (AUTO) 0.1 K/uL (0.00-0.22); BASOPHILS % (AUTO) 0.9 % (0.0-2.0); EOSINOPHILS # (AUTO) 0.2 K/uL (0-0.4); EOSINOPHILS % (AUTO) 1.9 % (0.0-4.0); HEMATOCRIT 38.6 % (36-52); HEMOGLOBIN 13.3 g/dL (12.0-18.0); LYMPHOCYTES # (AUTO) 1.9 K/uL (2.0-11.5); LYMPHOCYTES % (AUTO) 17.5 % (20.5-51.1); MEAN CORPUSCULAR HEMOGLOBIN 32 pg (27-31); MEAN CORPUSCULAR HGB CONC 34 g/dL (33-37); MEAN CORPUSCULAR VOLUME 91.5 fL (80-94); MONOCYTES % (AUTO) 9.4 % (1.7-9.3); NEUTROPHILS # (AUTO) 7.5 K/uL (1.8-7.7); NEUTROPHILS % (AUTO) 70.3 % (42.2-75.2); PLATELET COUNT (AUTO) 172 K/uL (140-450); RED BLOOD CELL COUNT(AUTO) 4.21 MIL/uL (4.20-6.10); RED CELL DISTRIBUTION WIDTH 13.5 % (11.6-13.7); WHITE BLOOD COUNT (AUTO) 10.6 K/uL (4.8-10.8)
--- NOTE | 2022-11-30 02:07 | NUR ---
0157 COULD NOT SCAN MEDICINE. PATIENT WEARING WRONG ARM BAND. BAND MACHINE DOWN IN ER
[2022-11-30 02:15] LABS: PROTHROMBIN TIME 10.1 secs (10.8-13.4)
[2022-11-30 02:21] LABS: ALBUMIN 4.2 g/dL (3.4-5.0); ANION GAP 12.2 (8-16); CARBON DIOXIDE 25.9 mmol/L (21-32); CREATININE 1.7 mg/dL (0.6-1.3); POTASSIUM 4.1 mmol/L (3.5-5.1); TOTAL BILIRUBIN 0.7 mg/dL (0.0-1.0)
[2022-11-30] MEDS ORDERED: PRED20TA5 PO (04:12)
[2022-11-30] MEDS ORDERED: ALBU0.0912 INH (04:12)
[2022-11-30 04:20] VITALS: BP 161/93; PULSE 57; RESP 20; TEMP 98.6; O2SAT 97
--- NOTE | 2022-11-30 04:20 | NUR ---
Patient discharged with v/s stable. Written and verbal after care instructions given and explained. Patient alert, oriented and verbalized understanding of instructions. Ambulatory with steady gait. All questions addressed prior to discharge. ID band removed. Patient advised to follow up with PMD. Rx of ALBUTEROL AND PREDNISONE given. Patient educated on indication of medication including possible reaction and side effects. Opportunity to ask questions provided and answered. DX: (1)HEAD INJURY, ADULT, (2)CHEST WALL PAIN, (3)WRIST SPRAIN, ADULT, (4)CHRONIC PULMONARY DISEASE EXACERBATION
== END 2022-11-30 04:20 | disposition home or self-care (01) ==
LOC: MED 00:06
DX: S20.211A Contusion of right front wall of thorax, initial encounter (principal); S60.211A Contusion of right wrist, initial encounter; S09.90XA Unspecified injury of head, initial encounter; R91.1 Solitary pulmonary nodule; N17.9 Acute kidney failure, unspecified; J44.1 Chronic obstructive pulmonary disease with (acute) exacerbation; I11.0 Hypertensive heart disease with heart failure; I50.9 Heart failure, unspecified; Z79.899 Other long term (current) drug therapy; Z88.5 Allergy status to narcotic agent; Z88.6 Allergy status to analgesic agent; Z88.8 Allergy status to other drugs, medicaments and biological substances; Z86.19 Personal history of other infectious and parasitic diseases; W19.XXXA Unspecified fall, initial encounter; Y93.89 Activity, other specified; Y92.89 Other specified places as the place of occurrence of the external cause; Y99.8 Other external cause status
CPT/HCPCS: 29125; 36415; 36600; 70450; 71111; 71250; 73110; 80053; 82803; 83880; 84484; 85025; 85610; 85730; 93005; 94640; 96372; 99285; J2270; Q0092

== ENCOUNTER 2023-01-20 03:35 | Inpatient (IN) | payer MEDICAID ==
[~2023-01-20] VITALS: Ht 182.9 cm; Wt 124.7 kg
[2023-01-20] VITALS (8 sets, daily range): BP systolic 107–135; BP diastolic 60–76; PULSE 20–101; RESP 16–30; TEMP 96.8–98.5; O2SAT 90–98
[~2023-01-20 03:35] MED LIST changes: +ALBU0.0912 INH; +PRED20TA5 PO
[2023-01-20] MEDS ORDERED: NACL 0.9% 1,000 ML IV ONE ×2 (04:40→06:25)
[2023-01-20] MEDS ORDERED: MORPHINE SULFATE 4 MG/ML SYR IVP ONE (04:40)
[2023-01-20] MEDS ORDERED: ONDANSETRON 4 MG/2 ML VIAL IVP ONE (04:40)
[2023-01-20 04:58] LABS: APPEARANCE,URINE CLEAR (CLEAR); BILIRUBIN,URINE NEGATIVE (NEGATIVE); BLOOD, URINE 1+ (NEGATIVE); COLOR,URINE YELLOW (YELLOW); LEUKOCYTE ESTERASE ,URINE 1+ (NEGATIVE); NITRITE, URINE NEGATIVE (NEGATIVE); PROTEIN,URINE NEGATIVE (NEGATIVE); UGLUCOSE NEGATIVE (NEGATIVE)
[2023-01-20] MEDS ORDERED: MORPHINE SULFATE 4 MG/ML SYR IM ONE (05:05)
[2023-01-20 05:06] LABS: BACTERIA,URINE 10-30 (MOD) /HPF (None Seen); MUCUS,URINE 1+ /LPF (None Seen); RBC,URINE 0-5 /HPF (0-5); SQUAMOUS EPITHELIAL CELL,UR 0-3 (FEW) /LPF (0-3 (FEW)); WBC,URINE 20-60 /HPF (0-5)
[2023-01-20] MEDS ORDERED: METO25TA PO (05:19)
[2023-01-20] MEDS ORDERED: POTA10TA70 PO (05:20)
[2023-01-20] MEDS ORDERED: TAMS0.4C96 PO (05:21)
[2023-01-20] MEDS ORDERED: ATOR40TA PO (05:22)
[2023-01-20] MEDS ORDERED: FURO-570 PO (05:23)
[2023-01-20] MEDS ORDERED: FISH100053 PO (05:24)
[2023-01-20] MEDS ORDERED: QUET100T PO (05:24)
[2023-01-20 05:39] LABS: AMPHETAMINE, URINE POSITIVE ng/ml (NEG <=1000); BARBITURATE, URINE NEGATIVE ng/ml (NEG <=200); BENZODIAZEPINE, URINE NEGATIVE ng/mL (NEG <=200); CANNABINOID, URINE NEGATIVE ng/mL (NEG <=50); COCAINE, URINE NEGATIVE ng/mL (NEG <=300); OPIATE, URINE NEGATIVE ng/mL (NEG <=2000); PHENCYCLIDINE SCREEN,URINE NEGATIVE ng/mL (NEG <=25)
[2023-01-20 05:51] LABS: BASOPHILS # (AUTO) 0.2 K/uL (0.00-0.22); BASOPHILS % (AUTO) 0.9 % (0.0-2.0); EOSINOPHILS # (AUTO) 0.2 K/uL (0-0.4); EOSINOPHILS % (AUTO) 0.6 % (0.0-4.0); HEMATOCRIT 43.7 % (36-52); HEMOGLOBIN 14.7 g/dL (12.0-18.0); LYMPHOCYTES # (AUTO) 1.5 K/uL (2.0-11.5); LYMPHOCYTES % (AUTO) 5.4 % (20.5-51.1); MEAN CORPUSCULAR HEMOGLOBIN 31 pg (27-31); MEAN CORPUSCULAR HGB CONC 34 g/dL (33-37); MONOCYTES # (AUTO) 2.2 K/uL (0.8-1.0); MONOCYTES % (AUTO) 7.8 % (1.7-9.3); NEUTROPHILS # (AUTO) 23.5 K/uL (1.8-7.7); NEUTROPHILS % (AUTO) 85.3 % (42.2-75.2); PLATELET COUNT (AUTO) 151 K/uL (140-450); RED BLOOD CELL COUNT(AUTO) 4.76 MIL/uL (4.20-6.10)
[2023-01-20 05:54] LABS: WHITE BLOOD COUNT (AUTO) 27.5 K/uL (4.8-10.8)
[2023-01-20 06:02] LABS: ALANINE AMINOTRANSFERASE 46 U/L (12-78); ALBUMIN 3.3 g/dL (3.4-5.0); ALKALINE PHOSPHATASE 81 U/L (50-136); ANION GAP 8.6 (8-16); ASPARTATE AMINOTRANSFERASE 25 U/L (15-37); CALCIUM 9.7 mg/dL (8.5-10.1); CARBON DIOXIDE 33.2 mmol/L (21-32); CHLORIDE 100 mmol/L (98-107); CREATININE 1.5 mg/dL (0.6-1.3); GFR ARICAN-AMERICAN 61 mL/min (>90); GFR NON ARICAN-AMERICAN 50 mL/min (>90); GLUCOSE 112 mg/dL (74-106); LIPASE 67 U/L (73-393); MAGNESIUM 1.7 mg/dL (1.8-2.4); POTASSIUM 3.8 mmol/L (3.5-5.1); SODIUM SERUM 138 mmol/L (136-145); TOTAL BILIRUBIN 0.8 mg/dL (0.0-1.0); TOTAL PROTEIN, SERUM 6.5 g/dL (6.4-8.2); UREA NITROGEN, BLOOD 24 mg/dL (7-18)
[2023-01-20] MEDS ORDERED: PIPERACILLIN/TAZOBACTAM 3.375 GM in DEXTROSE 5% 50 ML IV ONE (06:10)
[2023-01-20] MEDS ORDERED: LORazepam 2 MG/ML VIAL IVP ONE (07:30)
[2023-01-20 07:38] LABS: LACTIC ACID 1.2 mmol/L (0.4-2.0)
[2023-01-20] MEDS ORDERED: PIPERACILLIN/TAZOBACTAM 3.375 GM VIAL IV ONE ×2 (07:44→08:50)
[2023-01-20] MEDS ORDERED: LORazepam 2 MG/ML VIAL ONE (09:20)
[2023-01-20] MEDS ORDERED: ALBUTEROL SULFATE/IPRATROPIU 3 ML SOL IH ONE (09:25)
[2023-01-20] MEDS ORDERED: MORPHINE SULFATE 2 MG/ML SYR IVP STA (10:13)
[2023-01-20] MEDS ORDERED: LORazepam 2 MG/ML VIAL IVP PRN (12:35)
[2023-01-20] MEDS ORDERED: ONDANSETRON 4 MG/2 ML VIAL IVP PRN (12:35)
[2023-01-20] MEDS ORDERED: ACETAMINOPHEN 325 MG TAB PO PRN (12:35)
[2023-01-20] MEDS ORDERED: metroNIDAZOLE 500 MG/NS PREMIX 100 ML IV SCH (13:00)
[2023-01-20] MEDS: NACL 0.9% 1,000 ML IV SCH ×2 (13:42→20:35)
[2023-01-20] MEDS: MORPHINE SULFATE 2 MG/ML SYR IVP PRN ×2 (14:29→18:54)
[2023-01-20] MEDS ORDERED: MAG SULF 2000 MG/WATER PREMIX 50 ML IV SCH (15:15)
[2023-01-20] MEDS ORDERED: ONDANSETRON 4 MG TAB PO PRN (21:20)
[2023-01-21] VITALS (10 sets, daily range): BP systolic 127–141; BP diastolic 52–78; PULSE 76–85; RESP 18–20; TEMP 98.2–99.4; O2SAT 91–97
[2023-01-21] MEDS: MORPHINE SULFATE 2 MG/ML SYR IM PRN ×4 (04:14→19:45)
[2023-01-21] MEDS: LORazepam 1 MG TAB PO PRN ×2 (04:17→21:37)
[2023-01-21] MEDS: metroNIDAZOLE 500 MG TAB PO SCH ×3 (04:19→20:51)
[2023-01-21] MEDS: NACL 0.9% 1,000 ML IV SCH ×4 (04:35→23:10)
[2023-01-21 07:37] LABS: BASOPHILS # (AUTO) 0.2 K/uL (0.00-0.22); BASOPHILS % (AUTO) 1.1 % (0.0-2.0); EOSINOPHILS # (AUTO) 0.1 K/uL (0-0.4); EOSINOPHILS % (AUTO) 0.5 % (0.0-4.0); HEMATOCRIT 37.8 % (36-52); HEMOGLOBIN 12.6 g/dL (12.0-18.0); LYMPHOCYTES # (AUTO) 1.2 K/uL (2.0-11.5); LYMPHOCYTES % (AUTO) 6.1 % (20.5-51.1); MEAN CORPUSCULAR HEMOGLOBIN 31 pg (27-31); MEAN CORPUSCULAR HGB CONC 33 g/dL (33-37); MEAN CORPUSCULAR VOLUME 93.6 fL (80-94); MONOCYTES # (AUTO) 1.5 K/uL (0.8-1.0); MONOCYTES % (AUTO) 7.2 % (1.7-9.3); NEUTROPHILS # (AUTO) 17.1 K/uL (1.8-7.7); NEUTROPHILS % (AUTO) 85.1 % (42.2-75.2); PLATELET COUNT (AUTO) 96 K/uL (140-450); RED BLOOD CELL COUNT(AUTO) 4.04 MIL/uL (4.20-6.10); RED CELL DISTRIBUTION WIDTH 13.3 % (11.6-13.7); WHITE BLOOD COUNT (AUTO) 20.2 K/uL (4.8-10.8)
[2023-01-21 07:44] LABS: ALBUMIN 2.6 g/dL (3.4-5.0); ANION GAP 12.4 (8-16); CALCIUM 8.2 mg/dL (8.5-10.1); CARBON DIOXIDE 28.8 mmol/L (21-32); CREATININE 1.2 mg/dL (0.6-1.3); MAGNESIUM 2.1 mg/dL (1.8-2.4); POTASSIUM 4.2 mmol/L (3.5-5.1); TOTAL BILIRUBIN 1.3 mg/dL (0.0-1.0); TOTAL PROTEIN, SERUM 5.7 g/dL (6.4-8.2)
[2023-01-22] VITALS: BP 140/57; PULSE 78; PULSE 87; RESP 18; TEMP 98.6; O2SAT 95
[2023-01-22] MEDS: MORPHINE SULFATE 2 MG/ML SYR IM PRN ×3 (00:22→10:55)
[2023-01-22 04:00] VITALS: BP 124/57; PULSE 104; PULSE 81; RESP 20; TEMP 99; O2SAT 94
[2023-01-22] MEDS: metroNIDAZOLE 500 MG TAB PO SCH (04:24)
[2023-01-22 07:42] VITALS: O2SAT 94
[2023-01-22 08:00] VITALS: BP 130/78; PULSE 80; PULSE 87; RESP 20; TEMP 98.2; O2SAT 96
[2023-01-22] MEDS ORDERED: LEVO750T75 PO (11:20)
[2023-01-22] MEDS ORDERED: METR-520 PO (11:20)
[2023-01-22 12:00] VITALS: BP 135/73; PULSE 75; PULSE 76; PULSE 77; RESP 20; TEMP 98; O2SAT 95; O2SAT 96
[2023-01-22 12:43] LABS: BASOPHILS % (AUTO) 0.2 % (0.0-2.0); EOSINOPHILS # (AUTO) 0.1 K/uL (0-0.4); EOSINOPHILS % (AUTO) 1.2 % (0.0-4.0); HEMATOCRIT 34.1 % (36-52); HEMOGLOBIN 11.4 g/dL (12.0-18.0); LYMPHOCYTES # (AUTO) 0.8 K/uL (2.0-11.5); LYMPHOCYTES % (AUTO) 6.7 % (20.5-51.1); MEAN CORPUSCULAR HEMOGLOBIN 31 pg (27-31); MEAN CORPUSCULAR HGB CONC 33 g/dL (33-37); MEAN CORPUSCULAR VOLUME 93.3 fL (80-94); MONOCYTES # (AUTO) 1.4 K/uL (0.8-1.0); MONOCYTES % (AUTO) 12.3 % (1.7-9.3); NEUTROPHILS # (AUTO) 9.4 K/uL (1.8-7.7); NEUTROPHILS % (AUTO) 79.6 % (42.2-75.2); PLATELET COUNT (AUTO) 128 K/uL (140-450); RED BLOOD CELL COUNT(AUTO) 3.66 MIL/uL (4.20-6.10); RED CELL DISTRIBUTION WIDTH 13.3 % (11.6-13.7); WHITE BLOOD COUNT (AUTO) 11.8 K/uL (4.8-10.8)
[2023-01-22 13:00] LABS: ALBUMIN 2.5 g/dL (3.4-5.0); CARBON DIOXIDE 31.3 mmol/L (21-32); CREATININE 1.1 mg/dL (0.6-1.3); POTASSIUM 4.3 mmol/L (3.5-5.1); TOTAL BILIRUBIN 0.7 mg/dL (0.0-1.0)
[2023-01-22 14:13] VITALS: BP 135/73; PULSE 77; RESP 20; TEMP 98
[2023-01-22] MEDS: MORPHINE SULFATE 2 MG/ML SYR IVP PRN (14:32)
== END 2023-01-22 15:50 | disposition home or self-care (01) | DRG 720 ==
LOC: MED 03:35 → MTU 12:35
PROVIDERS: ADMIT Student in an Organized Health Care Education/Training Program; ATTEND Student in an Organized Health Care Education/Training Program
DX: A41.9 Sepsis, unspecified organism (principal); J96.01 Acute respiratory failure with hypoxia; E44.0 Moderate protein-calorie malnutrition; F15.10 Other stimulant abuse, uncomplicated; I48.91 Unspecified atrial fibrillation; K52.9 Noninfective gastroenteritis and colitis, unspecified; N39.0 Urinary tract infection, site not specified; Z88.5 Allergy status to narcotic agent; Z88.6 Allergy status to analgesic agent; Z88.8 Allergy status to other drugs, medicaments and biological substances; Z68.37 Body mass index [BMI] 37.0-37.9, adult
CPT/HCPCS: 36415; 71045; 80053; 80305; 81001; 83605; 83690; 83735; 83880; 84484; 85025; 87040; 87081; 87086; 94640; 96361; 96365; 96375; 96376; 99285; J0696; J2060; J2270; J2405; J2543; J3475; J3490; J7060; Q0092; Q9967

== ENCOUNTER 2023-01-24 00:15 | Inpatient (IN) | payer MEDICAID ==
[~2023-01-24] VITALS: Ht 182.9 cm; Wt 118.8 kg
[2023-01-24] VITALS (11 sets, daily range): BP systolic 75–126; BP diastolic 46–77; PULSE 64–112; RESP 12–34; TEMP 96.6–97.6; O2SAT 90–97
[~2023-01-24 00:15] MED LIST changes: -CEPH-588 PO; +FISH100053 PO; +FURO-570 PO; -LEVO-481 PO; +METR-520 PO; +POTA10TA70 PO; -PRED10TA5 PO; -PRED20TA5 PO; +QUET100T PO
[2023-01-24] MEDS ORDERED: ALBUTEROL SULFATE/IPRATROPIU 3 ML SOL IH ONE ×2 (00:40→00:55)
[2023-01-24] MEDS ORDERED: methylPREDNISolone SS 125 MG in WATER STERILE 2 ML IV ONE (01:05)
[2023-01-24] MEDS ORDERED: MAG SULF 2000 MG/WATER PREMIX 50 ML IV ONE (01:05)
[2023-01-24 01:26] LABS: BASOPHILS # (AUTO) 0.1 K/uL (0.00-0.22); BASOPHILS % (AUTO) 0.6 % (0.0-2.0); EOSINOPHILS # (AUTO) 0.1 K/uL (0-0.4); EOSINOPHILS % (AUTO) 0.9 % (0.0-4.0); HEMATOCRIT 33.9 % (36-52); HEMOGLOBIN 11.8 g/dL (12.0-18.0); LYMPHOCYTES # (AUTO) 1.5 K/uL (2.0-11.5); LYMPHOCYTES % (AUTO) 15.6 % (20.5-51.1); MEAN CORPUSCULAR HEMOGLOBIN 32 pg (27-31); MEAN CORPUSCULAR HGB CONC 35 g/dL (33-37); MONOCYTES # (AUTO) 1.2 K/uL (0.8-1.0); MONOCYTES % (AUTO) 12.3 % (1.7-9.3); NEUTROPHILS # (AUTO) 6.7 K/uL (1.8-7.7); NEUTROPHILS % (AUTO) 70.6 % (42.2-75.2); PLATELET COUNT (AUTO) 151 K/uL (140-450); RED BLOOD CELL COUNT(AUTO) 3.69 MIL/uL (4.20-6.10); RED CELL DISTRIBUTION WIDTH 13.4 % (11.6-13.7); WHITE BLOOD COUNT (AUTO) 9.4 K/uL (4.8-10.8)
[2023-01-24 01:42] LABS: ALBUMIN 2.7 g/dL (3.4-5.0); ANION GAP 11.6 (8-16); CALCIUM 8.2 mg/dL (8.5-10.1); CARBON DIOXIDE 28.8 mmol/L (21-32); CREATININE 1.3 mg/dL (0.6-1.3); POTASSIUM 3.4 mmol/L (3.5-5.1); TOTAL BILIRUBIN 0.5 mg/dL (0.0-1.0); TOTAL PROTEIN, SERUM 6.5 g/dL (6.4-8.2)
[2023-01-24 01:46] LABS: APPEARANCE,URINE CLEAR (CLEAR); BILIRUBIN,URINE NEGATIVE (NEGATIVE); BLOOD, URINE 2+ (NEGATIVE); COLOR,URINE YELLOW (YELLOW); LEUKOCYTE ESTERASE ,URINE NEGATIVE (NEGATIVE); NITRITE, URINE NEGATIVE (NEGATIVE); PROTEIN,URINE NEGATIVE (NEGATIVE); UGLUCOSE NEGATIVE (NEGATIVE); UROBILINOGEN,URINE 0.2 EU/dL (0.2 - 1)
[2023-01-24 01:52] LABS: BACTERIA,URINE FEW /HPF (None Seen); MUCUS,URINE 1+ /LPF (None Seen); SQUAMOUS EPITHELIAL CELL,UR 0-3 (FEW) /LPF (0-3 (FEW)); WBC,URINE 0-5 /HPF (0-5)
[2023-01-24] MEDS ORDERED: DILTIAZEM 25 MG/5 ML VIAL IVP ONE (01:55)
[2023-01-24 01:58] LABS: AMPHETAMINE, URINE POSITIVE ng/ml (NEG <=1000); BARBITURATE, URINE NEGATIVE ng/ml (NEG <=200); BENZODIAZEPINE, URINE NEGATIVE ng/mL (NEG <=200); CANNABINOID, URINE NEGATIVE ng/mL (NEG <=50); COCAINE, URINE NEGATIVE ng/mL (NEG <=300); OPIATE, URINE POSITIVE ng/mL (NEG <=2000); PHENCYCLIDINE SCREEN,URINE NEGATIVE ng/mL (NEG <=25)
[2023-01-24] MEDS ORDERED: FUROSEMIDE 40 MG/4 ML VIAL IVP SCH (02:05)
[2023-01-24] MEDS ORDERED: AZITHROMYCIN 500 MG in DEXTROSE 5% 250 ML IV ONE (02:05)
[2023-01-24] MEDS ORDERED: cefTRIAXone 1,000 MG VIAL ONE (02:24)
[2023-01-24] MEDS ORDERED: guaiFENesin DM 200/20 MG-10 ML 10 ML UDC PO PRN (02:55)
[2023-01-24] MEDS ORDERED: ZOLPIDEM 5 MG TAB PO PRN (02:55)
[2023-01-24] MEDS ORDERED: DOCUSATE SODIUM 100 MG GELCAP PO PRN ×2 (02:55→08:20)
[2023-01-24] MEDS ORDERED: ONDANSETRON 4 MG/2 ML VIAL IM/IVP PRN (02:55)
[2023-01-24] MEDS ORDERED: POTASSIUM CHLORIDE 10 MEQ TABER PO PRN ×2 (02:55→08:20)
[2023-01-24] MEDS ORDERED: ALBUTEROL SULFATE/IPRATROPIU 3 ML SOL IH PRN ×2 (03:00→08:20)
[2023-01-24] MEDS ORDERED: AZITHROMYCIN 500 MG INJ VIAL IV ONE (03:41)
[2023-01-24] MEDS ORDERED: methylPREDNISolone SS 125 MG/2 ML VIAL ONE (03:59)
[2023-01-24] MEDS: PANTOPRAZOLE 40 MG TABEC PO SCH (08:17)
[2023-01-24] MEDS ORDERED: LORazepam 2 MG/ML VIAL IVP PRN (08:20)
[2023-01-24] MEDS ORDERED: MAG SULF 2000 MG/WATER PREMIX 50 ML IV PRN (08:20)
[2023-01-24] MEDS ORDERED: ONDANSETRON 4 MG/2 ML VIAL IVP PRN (08:20)
[2023-01-24] MEDS ORDERED: hydroCHLOROthiazide 25 MG TAB PO SCH (09:00)
[2023-01-24] MEDS ORDERED: BENAZEPRIL 20 MG TAB PO SCH (09:00)
[2023-01-24] MEDS ORDERED: ISOSORBIDE MONONITRATE 30 MG TABER PO SCH (09:00)
[2023-01-24] MEDS ORDERED: AZITHROMYCIN 250 MG TAB PO SCH (09:00)
[2023-01-24] MEDS: TAMSULOSIN 0.4 MG CAP PO SCH (09:17)
[2023-01-24] MEDS: METOPROLOL 50 MG TAB PO SCH ×2 (09:21→20:06)
[2023-01-24] MEDS: ATORVASTATIN 80 MG TAB PO SCH (09:21)
[2023-01-24] MEDS: QUEtiapine FUMARATE 100 MG TAB PO SCH (09:22)
[2023-01-24] MEDS: ECOTRIN 81 MG TABEC PO SCH (09:22)
[2023-01-24] MEDS: FUROSEMIDE 40 MG/4 ML VIAL IVP SCH (09:42)
[2023-01-24] MEDS: ZOLPIDEM 10 MG TAB PO PRN (21:26)
[2023-01-25] VITALS (9 sets, daily range): BP systolic 104–111; BP diastolic 57–74; PULSE 64–92; RESP 12–20; TEMP 96.7–98.1; O2SAT 92–99
[2023-01-25] MEDS: ATORVASTATIN 80 MG TAB PO SCH (08:43)
[2023-01-25] MEDS: TAMSULOSIN 0.4 MG CAP PO SCH (08:43)
[2023-01-25] MEDS: PANTOPRAZOLE 40 MG TABEC PO SCH (08:43)
[2023-01-25] MEDS: ECOTRIN 81 MG TABEC PO SCH (08:43)
[2023-01-25] MEDS: METOPROLOL 50 MG TAB PO SCH ×2 (08:44→21:57)
[2023-01-25] MEDS: AZITHROMYCIN 250 MG TAB PO SCH (08:44)
[2023-01-25] MEDS: QUEtiapine FUMARATE 100 MG TAB PO SCH (08:44)
[2023-01-25] MEDS: FUROSEMIDE 40 MG/4 ML VIAL IVP SCH (08:46)
[2023-01-25 09:19] LABS: BASOPHILS % (AUTO) 0.2 % (0.0-2.0); HEMOGLOBIN 11.6 g/dL (12.0-18.0); LYMPHOCYTES # (AUTO) 0.7 K/uL (2.0-11.5); LYMPHOCYTES % (AUTO) 3.9 % (20.5-51.1); MEAN CORPUSCULAR HEMOGLOBIN 31 pg (27-31); MEAN CORPUSCULAR HGB CONC 33 g/dL (33-37); MEAN CORPUSCULAR VOLUME 92.9 fL (80-94); MONOCYTES # (AUTO) 0.8 K/uL (0.8-1.0); MONOCYTES % (AUTO) 4.3 % (1.7-9.3); NEUTROPHILS # (AUTO) 16.3 K/uL (1.8-7.7); NEUTROPHILS % (AUTO) 91.6 % (42.2-75.2); PLATELET COUNT (AUTO) 192 K/uL (140-450); RED BLOOD CELL COUNT(AUTO) 3.77 MIL/uL (4.20-6.10); RED CELL DISTRIBUTION WIDTH 13.6 % (11.6-13.7); WHITE BLOOD COUNT (AUTO) 17.7 K/uL (4.8-10.8)
[2023-01-25 09:51] LABS: ALBUMIN 2.4 g/dL (3.4-5.0); ANION GAP 11.8 (8-16); CALCIUM 8.8 mg/dL (8.5-10.1); CARBON DIOXIDE 29.2 mmol/L (21-32); CREATININE 1.4 mg/dL (0.6-1.3); TOTAL BILIRUBIN 0.2 mg/dL (0.0-1.0); TOTAL PROTEIN, SERUM 6.4 g/dL (6.4-8.2)
[2023-01-25] MEDS ORDERED: PANTOPRAZOLE 40 MG TABEC PO ONE ×2 (16:30→16:50)
[2023-01-25] MEDS ORDERED: MORPHINE SULFATE 2 MG/ML SYR IVP ONE (21:05)
[2023-01-25] MEDS: NACL 0.9% 1,000 ML IV SCH (22:05)
[2023-01-26] VITALS: BP 127/79; PULSE 66; PULSE 78; RESP 18; TEMP 96.8; O2SAT 94
[2023-01-26 04:00] VITALS: BP 140/89; PULSE 79; PULSE 80; RESP 18; TEMP 97.5; O2SAT 96
[2023-01-26 07:27] LABS: BASOPHILS # (AUTO) 0.1 K/uL (0.00-0.22); BASOPHILS % (AUTO) 0.6 % (0.0-2.0); EOSINOPHILS % (AUTO) 0.4 % (0.0-4.0); HEMATOCRIT 36.8 % (36-52); HEMOGLOBIN 12.2 g/dL (12.0-18.0); LYMPHOCYTES # (AUTO) 1.7 K/uL (2.0-11.5); LYMPHOCYTES % (AUTO) 13.6 % (20.5-51.1); MEAN CORPUSCULAR HEMOGLOBIN 31 pg (27-31); MEAN CORPUSCULAR HGB CONC 33 g/dL (33-37); MEAN CORPUSCULAR VOLUME 92.9 fL (80-94); MONOCYTES # (AUTO) 0.6 K/uL (0.8-1.0); MONOCYTES % (AUTO) 4.4 % (1.7-9.3); NEUTROPHILS # (AUTO) 10.5 K/uL (1.8-7.7); PLATELET COUNT (AUTO) 187 K/uL (140-450); RED BLOOD CELL COUNT(AUTO) 3.96 MIL/uL (4.20-6.10); RED CELL DISTRIBUTION WIDTH 13.3 % (11.6-13.7); WHITE BLOOD COUNT (AUTO) 12.9 K/uL (4.8-10.8)
[2023-01-26 07:44] LABS: ANION GAP 11.4 (8-16); CARBON DIOXIDE 29.4 mmol/L (21-32); CREATININE 1.3 mg/dL (0.6-1.3); POTASSIUM 3.8 mmol/L (3.5-5.1)
[2023-01-26 08:00] VITALS: BP 146/71; PULSE 69; PULSE 76; PULSE 80; PULSE 86; RESP 19; TEMP 97; O2SAT 95; O2SAT 97
[2023-01-26] MEDS: NACL 0.9% 1,000 ML IV SCH (08:05)
[2023-01-26 08:22] LABS: ALBUMIN 2.4 g/dL (3.4-5.0); ANION GAP 13.8 (8-16); CALCIUM 8.9 mg/dL (8.5-10.1); CREATININE 1.3 mg/dL (0.6-1.3); POTASSIUM 3.8 mmol/L (3.5-5.1); TOTAL BILIRUBIN 0.2 mg/dL (0.0-1.0); TOTAL PROTEIN, SERUM 6.1 g/dL (6.4-8.2)
[2023-01-26] MEDS: FUROSEMIDE 40 MG/4 ML VIAL IVP SCH (09:00)
[2023-01-26] MEDS: TAMSULOSIN 0.4 MG CAP PO SCH (09:17)
[2023-01-26] MEDS: ECOTRIN 81 MG TABEC PO SCH (09:18)
[2023-01-26] MEDS: PANTOPRAZOLE 40 MG TABEC PO SCH (09:18)
[2023-01-26] MEDS: QUEtiapine FUMARATE 100 MG TAB PO SCH (09:18)
[2023-01-26] MEDS: AZITHROMYCIN 250 MG TAB PO SCH (09:18)
[2023-01-26] MEDS: METOPROLOL 50 MG TAB PO SCH (09:18)
[2023-01-26] MEDS: ZOLPIDEM 10 MG TAB PO PRN (09:19)
[2023-01-26] MEDS: ATORVASTATIN 80 MG TAB PO SCH (09:19)
[2023-01-26] MEDS ORDERED: LORazepam 1 MG TAB PO PRN (09:30)
[2023-01-26 09:44] VITALS: PULSE 78; RESP 32; O2SAT 93
[2023-01-26 12:00] VITALS: BP 126/85; PULSE 71; PULSE 73; RESP 19; TEMP 97; O2SAT 97
[2023-01-26 16:26] VITALS: BP 126/85; PULSE 71; RESP 19; TEMP 97
== END 2023-01-26 16:45 | disposition home or self-care (01) | DRG 720 ==
LOC: MED 00:15 → MTU 02:57
PROVIDERS: ADMIT Student in an Organized Health Care Education/Training Program; ATTEND Student in an Organized Health Care Education/Training Program
DX: A41.9 Sepsis, unspecified organism (principal); J96.01 Acute respiratory failure with hypoxia; I50.43 Acute on chronic combined systolic (congestive) and diastolic (congestive) heart failure; E43 Unspecified severe protein-calorie malnutrition; J18.9 Pneumonia, unspecified organism; I42.9 Cardiomyopathy, unspecified; J44.0 Chronic obstructive pulmonary disease with (acute) lower respiratory infection; J44.1 Chronic obstructive pulmonary disease with (acute) exacerbation; J45.901 Unspecified asthma with (acute) exacerbation; I11.0 Hypertensive heart disease with heart failure; F15.10 Other stimulant abuse, uncomplicated; N40.0 Benign prostatic hyperplasia without lower urinary tract symptoms; B19.20 Unspecified viral hepatitis C without hepatic coma; I48.91 Unspecified atrial fibrillation; E66.9 Obesity, unspecified; Z88.6 Allergy status to analgesic agent; Z88.1 Allergy status to other antibiotic agents; Z88.8 Allergy status to other drugs, medicaments and biological substances; Z79.899 Other long term (current) drug therapy; Z79.82 Long term (current) use of aspirin; Z79.01 Long term (current) use of anticoagulants; Z68.35 Body mass index [BMI] 35.0-35.9, adult
CPT/HCPCS: 36415; 71045; 80048; 80053; 80305; 81001; 83036; 83605; 83735; 83880; 84484; 85025; 87040; 87081; 94640; 96374; 96375; 99285; J0456; J0696; J1644; J1940; J2060; J2270; J2930; J3475; J3490; J7060; Q0092

== ENCOUNTER 2023-04-07 13:43 | Emergency (ER) | payer MEDICAID, OTHER ==
[~2023-04-07] VITALS: Ht 182.9 cm; Wt 123.4 kg
[2023-04-07 13:44] VITALS: BP 138/94; PULSE 69; RESP 18; TEMP 97.8; O2SAT 95
[2023-04-07 14:57] LABS: BLOOD GAS PCO2 54.1 mmHg (35-45); BLOOD GAS PH 7.364 (7.35-7.45)
[2023-04-07 14:58] LABS: BLOOD GAS BASE EXCESS 3.5 mmol/L (-2.0-2.0); BLOOD GAS HCO3 30.2 mmol/L (22-26); BLOOD GAS PO2 22.6 mmHg (75-100)
[2023-04-07 14:59] LABS: BLOOD GAS O2 SAT% 35.4 % (92.0-98.5)
[2023-04-07 18:04] VITALS: O2SAT 95
== END 2023-04-07 18:03 | disposition home or self-care (01) ==
LOC: MED 13:43
DX: S82.832A Other fracture of upper and lower end of left fibula, initial encounter for closed fracture (principal); J44.9 Chronic obstructive pulmonary disease, unspecified; I11.0 Hypertensive heart disease with heart failure; I50.9 Heart failure, unspecified; Z98.890 Other specified postprocedural states; Z79.899 Other long term (current) drug therapy; Z79.2 Long term (current) use of antibiotics; Z79.82 Long term (current) use of aspirin; Z88.5 Allergy status to narcotic agent; Z88.6 Allergy status to analgesic agent; Z88.8 Allergy status to other drugs, medicaments and biological substances; X58.XXXA Exposure to other specified factors, initial encounter; Y92.89 Other specified places as the place of occurrence of the external cause; Y93.89 Activity, other specified; Y99.8 Other external cause status
CPT/HCPCS: 29515; 36600; 73610; 73630; 82803; 99284

== ENCOUNTER 2023-10-16 11:03 | Inpatient (IN) | payer OTHER ==
[~2023-10-16] VITALS: Ht 182.9 cm; Wt 113.4 kg
[2023-10-16 11:04] VITALS: BP 136/80; PULSE 65; RESP 19; TEMP 97.9; O2SAT 95
[2023-10-16] MEDS: KETOROLAC 30 MG/ML VIAL IVP ONE (11:57)
[2023-10-16] MEDS: NACL 0.9% 1,000 ML IV SCH ×2 (12:01→15:00)
[2023-10-16 12:34] LABS: BASOPHILS % (AUTO) 0.6 % (0.0-2.0); EOSINOPHILS # (AUTO) 0.1 K/uL (0-0.4); EOSINOPHILS % (AUTO) 0.8 % (0.0-4.0); HEMATOCRIT 40.8 % (36-52); HEMOGLOBIN 13.9 g/dL (12.0-18.0); LYMPHOCYTES # (AUTO) 0.8 K/uL (2.0-11.5); LYMPHOCYTES % (AUTO) 10.5 % (20.5-51.1); MEAN CORPUSCULAR HEMOGLOBIN 30 pg (27-31); MEAN CORPUSCULAR HGB CONC 34 g/dL (33-37); MEAN CORPUSCULAR VOLUME 88.4 fL (80-94); MONOCYTES # (AUTO) 0.8 K/uL (0.8-1.0); MONOCYTES % (AUTO) 10.2 % (1.7-9.3); NEUTROPHILS # (AUTO) 5.8 K/uL (1.8-7.7); NEUTROPHILS % (AUTO) 77.9 % (42.2-75.2); PLATELET COUNT (AUTO) 151 K/uL (140-450); RED BLOOD CELL COUNT(AUTO) 4.62 MIL/uL (4.20-6.10); RED CELL DISTRIBUTION WIDTH 16.1 % (11.6-13.7); WHITE BLOOD COUNT (AUTO) 7.4 K/uL (4.8-10.8)
[2023-10-16 12:47] LABS: ANION GAP 12.1 (8-16); CALCIUM 9.3 mg/dL (8.5-10.1); CARBON DIOXIDE 26.9 mmol/L (21-32); CREATININE 1.3 mg/dL (0.6-1.3)
[2023-10-16 12:57] LABS: LACTIC ACID 1.1 mmol/L (0.4-2.0)
[2023-10-16 13:21] LABS: INR 0.91 (0.8-1.2); PARTIAL THROMBOPLASTIN TIME 27.8 secs (22-35.6); PROTHROMBIN TIME 9.6 secs (10.8-13.4)
[2023-10-16] MEDS ORDERED: ACETAMINOPHEN 325 MG TAB PO PRN (14:00)
[2023-10-16] MEDS ORDERED: LORazepam 2 MG/ML VIAL IVP PRN (14:00)
[2023-10-16] MEDS ORDERED: ONDANSETRON 4 MG/2 ML VIAL IVP PRN (14:00)
[2023-10-16 14:28] LABS: ALBUMIN 3.3 g/dL (3.4-5.0); BILIRUBIN,DIRECT 0.2 mg/dL (0.0-0.3); TOTAL BILIRUBIN 0.7 mg/dL (0.0-1.0); TOTAL PROTEIN, SERUM 7.4 g/dL (6.4-8.2)
[2023-10-16 15:55] VITALS: PULSE 101
[2023-10-16 16:00] VITALS: BP 145/75; PULSE 105; RESP 20; TEMP 97.8; O2SAT 94
[2023-10-16] MEDS: MORPHINE SULFATE 2 MG/ML SYR IVP PRN (18:34)
[2023-10-16 18:42] VITALS: PULSE 105; RESP 20; O2SAT 94
[2023-10-16 18:51] VITALS: PULSE 105; RESP 20; O2SAT 94
[2023-10-16 20:00] VITALS: BP 124/98; PULSE 98; PULSE 99; RESP 18; TEMP 98.1; O2SAT 93
[2023-10-16] MEDS: PIPERACILLIN/TAZOBACTAM 3.375 GM in DEXTROSE 5% 50 ML IV SCH (22:00)
[2023-10-16] MEDS: LORazepam 1 MG TAB PO PRN (22:13)
[2023-10-17] VITALS (7 sets, daily range): BP systolic 139–163; BP diastolic 71–98; PULSE 58–104; RESP 17–20; TEMP 97.1–97.9; O2SAT 93–96
[2023-10-17 05:27] LABS: BASOPHILS % (AUTO) 0.8 % (0.0-2.0); EOSINOPHILS # (AUTO) 0.2 K/uL (0-0.4); HEMATOCRIT 40.9 % (36-52); HEMOGLOBIN 13.7 g/dL (12.0-18.0); LYMPHOCYTES # (AUTO) 1.4 K/uL (2.0-11.5); LYMPHOCYTES % (AUTO) 23.4 % (20.5-51.1); MEAN CORPUSCULAR HEMOGLOBIN 30 pg (27-31); MEAN CORPUSCULAR HGB CONC 34 g/dL (33-37); MEAN CORPUSCULAR VOLUME 89.2 fL (80-94); MONOCYTES # (AUTO) 0.6 K/uL (0.8-1.0); MONOCYTES % (AUTO) 10.6 % (1.7-9.3); NEUTROPHILS # (AUTO) 3.8 K/uL (1.8-7.7); NEUTROPHILS % (AUTO) 62.2 % (42.2-75.2); PLATELET COUNT (AUTO) 148 K/uL (140-450); RED BLOOD CELL COUNT(AUTO) 4.59 MIL/uL (4.20-6.10); RED CELL DISTRIBUTION WIDTH 15.7 % (11.6-13.7)
[2023-10-17 05:53] LABS: ALBUMIN 2.8 g/dL (3.4-5.0); ANION GAP 12.2 (8-16); CALCIUM 9.3 mg/dL (8.5-10.1); CARBON DIOXIDE 25.8 mmol/L (21-32); CREATININE 1.1 mg/dL (0.6-1.3); TOTAL BILIRUBIN 0.7 mg/dL (0.0-1.0); TOTAL PROTEIN, SERUM 6.5 g/dL (6.4-8.2)
[2023-10-17 09:18] LABS: APPEARANCE,URINE CLEAR (CLEAR); BILIRUBIN,URINE NEGATIVE (NEGATIVE); BLOOD, URINE NEGATIVE (NEGATIVE); COLOR,URINE YELLOW (YELLOW); LEUKOCYTE ESTERASE ,URINE NEGATIVE (NEGATIVE); NITRITE, URINE NEGATIVE (NEGATIVE); PROTEIN,URINE NEGATIVE (NEGATIVE); UGLUCOSE NEGATIVE (NEGATIVE)
[2023-10-17] MEDS: ENOXAPARIN 40 MG/0.4 ML SYR SUBQ SCH (09:31)
[2023-10-17] MEDS ORDERED: diphenhydrAMINE 50 MG/ML VIAL IVP PRN (18:20)
[2023-10-17] MEDS ORDERED: ONDANSETRON 4 MG/2 ML VIAL IVP PRN (18:20)
[2023-10-17] MEDS: BUPIVACAINE-MPF 0.25% 30 ML VIAL INJ ONE (18:43)
[2023-10-17] MEDS: fentaNYL citrate 0.05 MG/ML VIAL ONE ×3 (18:43→22:18)
[2023-10-17] MEDS: fentaNYL citrate 0.05 MG/ML VIAL IVP ONE ×2 (18:43)
[2023-10-17] MEDS: LIDOCAINE/EPI 1% 1:100000 20 ML VIAL INJ ONE (18:43)
[2023-10-17] MEDS ORDERED: SEVOFLURANE 250 ML BTL INH ONE (19:00)
[2023-10-17] MEDS: THROMBIN KIT 20 MU VIAL TP ONE (20:38)
[2023-10-17] MEDS: MEDS-TO-BEDS MC SCH (21:00)
[2023-10-17] MEDS: HYDROmorphone 1 MG/ML AMP IVP PRN (21:26)
[2023-10-17] MEDS: HYDROmorphone PFS 2 MG/ML SYR ONE ×2 (21:26)
[2023-10-17] MEDS: ACETAMINOPHEN 0 ML IV ONE (22:16)
[2023-10-18] VITALS (12 sets, daily range): BP systolic 127–163; BP diastolic 78–89; PULSE 64–96; RESP 18–20; TEMP 97.9–99.7; O2SAT 96–98
[2023-10-18 09:50] LABS: BASOPHILS % (AUTO) 0.2 % (0.0-2.0); HEMATOCRIT 42.8 % (36-52); HEMOGLOBIN 14.4 g/dL (12.0-18.0); LYMPHOCYTES # (AUTO) 0.6 K/uL (2.0-11.5); LYMPHOCYTES % (AUTO) 5.8 % (20.5-51.1); MEAN CORPUSCULAR HEMOGLOBIN 30 pg (27-31); MEAN CORPUSCULAR HGB CONC 34 g/dL (33-37); MEAN CORPUSCULAR VOLUME 88.9 fL (80-94); MONOCYTES # (AUTO) 0.9 K/uL (0.8-1.0); MONOCYTES % (AUTO) 8.8 % (1.7-9.3); NEUTROPHILS # (AUTO) 9.2 K/uL (1.8-7.7); NEUTROPHILS % (AUTO) 85.2 % (42.2-75.2); PLATELET COUNT (AUTO) 247 K/uL (140-450); RED BLOOD CELL COUNT(AUTO) 4.81 MIL/uL (4.20-6.10); RED CELL DISTRIBUTION WIDTH 15.8 % (11.6-13.7); WHITE BLOOD COUNT (AUTO) 10.8 K/uL (4.8-10.8)
[2023-10-18 10:29] LABS: ANION GAP 15.5 (8-16); CALCIUM 9.1 mg/dL (8.5-10.1); CARBON DIOXIDE 24.6 mmol/L (21-32); CREATININE 1.1 mg/dL (0.6-1.3); POTASSIUM 5.1 mmol/L (3.5-5.1); TOTAL BILIRUBIN 1.1 mg/dL (0.0-1.0); TOTAL PROTEIN, SERUM 7.3 g/dL (6.4-8.2)
[2023-10-18] MEDS ORDERED: KETOROLAC 30 MG/ML VIAL IM SCH (13:51)
[2023-10-18] MEDS ORDERED: KETOROLAC 30 MG/ML VIAL IVP ONE (13:55)
[2023-10-18] MEDS: KETOROLAC 30 MG/ML VIAL IM SCH (14:09)
[2023-10-19] VITALS (11 sets, daily range): BP systolic 150–164; BP diastolic 83–101; PULSE 77–99; RESP 18–20; TEMP 97–99.5; O2SAT 90–99
[2023-10-19 08:26] LABS: BASOPHILS # (AUTO) 0.1 K/uL (0.00-0.22); BASOPHILS % (AUTO) 0.7 % (0.0-2.0); EOSINOPHILS # (AUTO) 0.1 K/uL (0-0.4); EOSINOPHILS % (AUTO) 1.1 % (0.0-4.0); HEMOGLOBIN 13.6 g/dL (12.0-18.0); LYMPHOCYTES # (AUTO) 1.2 K/uL (2.0-11.5); LYMPHOCYTES % (AUTO) 12.9 % (20.5-51.1); MEAN CORPUSCULAR HEMOGLOBIN 30 pg (27-31); MEAN CORPUSCULAR HGB CONC 34 g/dL (33-37); MEAN CORPUSCULAR VOLUME 88.2 fL (80-94); MONOCYTES # (AUTO) 1.1 K/uL (0.8-1.0); MONOCYTES % (AUTO) 11.4 % (1.7-9.3); NEUTROPHILS # (AUTO) 6.9 K/uL (1.8-7.7); NEUTROPHILS % (AUTO) 73.9 % (42.2-75.2); PLATELET COUNT (AUTO) 173 K/uL (140-450); RED BLOOD CELL COUNT(AUTO) 4.54 MIL/uL (4.20-6.10); RED CELL DISTRIBUTION WIDTH 15.6 % (11.6-13.7); WHITE BLOOD COUNT (AUTO) 9.3 K/uL (4.8-10.8)
[2023-10-20] VITALS (10 sets, daily range): BP systolic 137–160; BP diastolic 86–103; PULSE 85–105; RESP 18–20; TEMP 96.8–98.2; O2SAT 93–100
[2023-10-20] MEDS: hydrALAZINE 20 MG/ML VIAL IVP PRN (08:33)
[2023-10-21 04:00] VITALS: BP 141/86; PULSE 96; RESP 24; TEMP 97.6; O2SAT 91
[2023-10-21 07:40] VITALS: TEMP 97.7
[2023-10-21 08:00] VITALS: BP 148/81; PULSE 86; RESP 20; TEMP 97.6; O2SAT 100; O2SAT 98
[2023-10-21] MEDS ORDERED: ACET-8905 PO (14:36)
[2023-10-21 16:22] VITALS: BP 117/82; PULSE 62; RESP 20; TEMP 98.2; O2SAT 99
[2023-10-21 20:00] VITALS: PULSE 88; RESP 18; TEMP 97.5; O2SAT 94
[2023-10-22 04:00] VITALS: BP 141/82; PULSE 63; RESP 18; TEMP 97.8; O2SAT 94
[2023-10-22] MEDS: HYDROcodone/APAP 5/325 MG 1 TAB TAB PO PRN (04:14)
[2023-10-22 08:00] VITALS: BP 141/83; PULSE 77; PULSE 88; RESP 18; TEMP 97.1; TEMP 97.5; O2SAT 91; O2SAT 94
[2023-10-22 10:30] VITALS: BP 141/83; PULSE 77; RESP 18; TEMP 97.1
[2023-10-23] MEDS ORDERED: AMOX-1230 PO (13:54)
== END 2023-10-22 11:30 | disposition home or self-care (01) | DRG 263 ==
LOC: MED 11:03 → MTU 14:06
PROVIDERS: ADMIT Hospitalist; ATTEND Hospitalist
PROC: 0FB40ZZ Excision of Gallbladder, Open Approach (ICD-10-PCS; principal; 2023-10-16)
PROC: 0F9 Hepatobiliary System and Pancreas, Drainage (ICD-10-PCS; 2023-10-17)
PROC: 0FJ44ZZ Inspection of Gallbladder, Percutaneous Endoscopic Approach (ICD-10-PCS; 2023-10-17)
DX: K81.0 Acute cholecystitis (principal); I48.20 Chronic atrial fibrillation, unspecified; N40.0 Benign prostatic hyperplasia without lower urinary tract symptoms; J44.9 Chronic obstructive pulmonary disease, unspecified; E66.9 Obesity, unspecified; I10 Essential (primary) hypertension; K52.9 Noninfective gastroenteritis and colitis, unspecified; Z88.5 Allergy status to narcotic agent; Z88.8 Allergy status to other drugs, medicaments and biological substances; Z79.899 Other long term (current) drug therapy; Z68.33 Body mass index [BMI] 33.0-33.9, adult; Z79.51 Long term (current) use of inhaled steroids; Z79.01 Long term (current) use of anticoagulants
CPT/HCPCS: 36415; 76705; 78445; 80048; 80053; 80076; 81003; 83605; 83690; 83735; 84484; 84703; 85025; 85610; 85730; 87040; 87070; 87075; 87081; 87186; 87205; 88300; 88304; 88305; 93005; 96361; 96365; 96375; 99291; A9510; J0330; J0360; J0694; J1100; J1170; J1650; J1885; J2001; J2270; J2405; J2543; J2704; J3010; J3490; J7030; J7060; J7120; Q0092

== ENCOUNTER 2023-10-30 19:07 | Emergency (ER) | payer OTHER ==
[~2023-10-30] VITALS: Ht 182.9 cm; Wt 113.4 kg
[~2023-10-30 19:07] MED LIST changes: +ACET-8905 PO; -ALBU0.0912 INH; +AMOX-1230 PO; -ASPI-1856 PO; -BENA20TA PO; -FISH100053 PO; -FURO-570 PO; -HYDR25TA32 PO; -ISOS30TE68 PO; -LEVO750T75 PO; -LIP80 PO; -METO50TA99 PO; -METR-520 PO; -POTA10TA70 PO; -SPIR50TA PO; -TAMS0.4C97 PO
[2023-10-30 19:51] VITALS: BP 172/78; PULSE 60; RESP 16; TEMP 98.2; O2SAT 94
[2023-10-30 21:37] VITALS: O2SAT 98
[2023-10-30 22:56] VITALS: BP 151/91; PULSE 78; RESP 16; TEMP 97.9; O2SAT 98
== END 2023-10-30 22:56 | disposition home or self-care (01) ==
LOC: MED 19:07
DX: Z43.4 Encounter for attention to other artificial openings of digestive tract (principal); Z48.02 Encounter for removal of sutures; Z90.49 Acquired absence of other specified parts of digestive tract; J44.9 Chronic obstructive pulmonary disease, unspecified; I10 Essential (primary) hypertension; Z86.79 Personal history of other diseases of the circulatory system; Z79.2 Long term (current) use of antibiotics; Z79.899 Other long term (current) drug therapy; Z88.6 Allergy status to analgesic agent; Z88.5 Allergy status to narcotic agent
CPT/HCPCS: 99281

== ENCOUNTER 2024-02-16 13:36 | Emergency (ER) | payer OTHER ==
[~2024-02-16] VITALS: Ht 182.9 cm; Wt 111.1 kg
[2024-02-16 13:37] VITALS: BP 150/56; PULSE 113; RESP 18; TEMP 97.8; O2SAT 94
[2024-02-16 13:55] VITALS: O2SAT 94
[2024-02-16] MEDS: NACL 0.9% 1,000 ML IV SCH (14:17)
[2024-02-16] MEDS: MORPHINE SULFATE 4 MG/ML SYR IVP ONE (14:23)
[2024-02-16 14:25] LABS: BASOPHILS % (AUTO) 0.4 % (0.0-2.0); EOSINOPHILS # (AUTO) 0.1 K/uL (0-0.4); RED CELL DISTRIBUTION WIDTH 15.1 % (11.6-13.7); WHITE BLOOD COUNT (AUTO) 11.9 K/uL (4.8-10.8)
[2024-02-16 14:26] VITALS: BP 150/56; PULSE 113; RESP 18; TEMP 97.8; O2SAT 94
[2024-02-16 14:27] LABS: EOSINOPHILS % (AUTO) 0.7 % (0.0-4.0); HEMATOCRIT 42.5 % (36-52); LYMPHOCYTES # (AUTO) 1.4 K/uL (2.0-11.5); LYMPHOCYTES % (AUTO) 11.4 % (20.5-51.1); MEAN CORPUSCULAR HEMOGLOBIN 30 pg (27-31); MEAN CORPUSCULAR HGB CONC 33 g/dL (33-37); MONOCYTES # (AUTO) 0.9 K/uL (0.8-1.0); MONOCYTES % (AUTO) 7.3 % (1.7-9.3); NEUTROPHILS # (AUTO) 9.6 K/uL (1.8-7.7); NEUTROPHILS % (AUTO) 80.2 % (42.2-75.2); PLATELET COUNT (AUTO) 133 K/uL (140-450); RED BLOOD CELL COUNT(AUTO) 4.67 MIL/uL (4.20-6.10)
[2024-02-16 14:41] LABS: ANION GAP 12.4 (8-16); CARBON DIOXIDE 24.5 mmol/L (21-32); CREATININE 1.1 mg/dL (0.6-1.3); POTASSIUM 3.9 mmol/L (3.5-5.1)
[2024-02-16 14:48] LABS: ALBUMIN 3.4 g/dL (3.4-5.0); BILIRUBIN,DIRECT 0.4 mg/dL (0.0-0.3); TOTAL BILIRUBIN 1.2 mg/dL (0.0-1.0); TOTAL PROTEIN, SERUM 7.4 g/dL (6.4-8.2)
[2024-02-16 14:56] LABS: APPEARANCE,URINE CLEAR (CLEAR); BILIRUBIN,URINE NEGATIVE (NEGATIVE); BLOOD, URINE NEGATIVE (NEGATIVE); COLOR,URINE YELLOW (YELLOW); LEUKOCYTE ESTERASE ,URINE NEGATIVE (NEGATIVE); NITRITE, URINE NEGATIVE (NEGATIVE); PROTEIN,URINE TRACE (NEGATIVE); UGLUCOSE NEGATIVE (NEGATIVE)
[2024-02-16 15:25] LABS: BACTERIA,URINE FEW /HPF (None Seen); RBC,URINE 0-5 /HPF (0-5); WBC,URINE 0-5 /HPF (0-5)
[2024-02-16 15:26] LABS: MUCUS,URINE 1+ /LPF (None Seen); SQUAMOUS EPITHELIAL CELL,UR 0-3 (FEW) /LPF (0-3 (FEW))
[2024-02-16] MEDS ORDERED: ACET-5629 PO (15:41)
== END 2024-02-16 15:51 | disposition home or self-care (01) ==
LOC: MED 13:36
DX: R10.11 Right upper quadrant pain (principal); R51.9 Headache, unspecified; K43.9 Ventral hernia without obstruction or gangrene; J44.9 Chronic obstructive pulmonary disease, unspecified; I10 Essential (primary) hypertension; Z90.49 Acquired absence of other specified parts of digestive tract; Z98.890 Other specified postprocedural states; Z79.899 Other long term (current) drug therapy; Z88.6 Allergy status to analgesic agent; Z88.5 Allergy status to narcotic agent
CPT/HCPCS: 36415; 74176; 80048; 80076; 81001; 83690; 85025; 96361; 96374; 99285; J2270; J7030